=== PATIENT | female | born 1950 | race Caucasian/White ===

== ENCOUNTER → 2017-02-01 | Outpatient (CLI) | payer OTHER | LOC: FIMAGING 11:40 | PROVIDERS: ATTEND Orthopaedic Surgery | DX: S42.411 Displaced simple supracondylar fracture without intercondylar fracture of right humerus (principal) ==

== ENCOUNTER → 2017-07-06 | Outpatient (CLI) | payer OTHER ==
[~2017-07-06] MED LIST: LIDOCAINE 1% 300 MG/30 ML SDV ONE
== END ==
LOC: FIMAGING 09:53
PROVIDERS: ATTEND Orthopaedic Surgery Hand Surgery
PROC: 0R9L3ZX Drainage of Right Elbow Joint, Percutaneous Approach, Diagnostic (ICD-10-PCS; principal; 2017-07-06)
DX: L08.9 Local infection of the skin and subcutaneous tissue, unspecified (principal); S42.494 Other nondisplaced fracture of lower end of right humerus

== ENCOUNTER 2017-09-18 18:11 | Emergency (ER) | payer OTHER ==
[2017-09-18 18:35] VITALS: TEMP 98.2
--- NOTE | 2017-09-18 20:00 | EDPHY ---
H & P Stated Complaint: R ELBOW INFECTION/DRNG Time Seen by Provider: 09/18/17 19:23 HPI/ROS: Chief complaint: Right elbow infection History of present illness: This is a 66-year-old female who presents to the emergency department concerned she has a right elbow infection. Patient has a long history of problems with this elbow. Last year she injured it resulting in severe fracture. It did not properly heal and she has a nonunion. Over this time she has been treated by orthopedic doctors. This last June there was concern that she was getting a joint infection and an ultrasound guided arthrocentesis was performed. She states she has had a chronic wound at the site of the needle insertion since then. Over the last day she has started nto notice a small amount of pus coming from the wound site as well as a small amount of redness and swelling around it. She denies other associated signs or symptoms including no fevers, no red streaking from the wound site, no actual pain in the joint, she is able to move the joint at her baseline without difficulty, no abnormal coolness or paresthesias in the arm, no new trauma. - Personal History Current Tetanus/Diphtheria Vaccine: Yes Tetanus Vaccine Date: 02/02/2014 - Medical/Surgical History Hx Asthma: Yes Hx Chronic Respiratory Disease: No Hx Diabetes: No Hx Cardiac Disease: No Hx Renal Disease: No Hx Cirrhosis: No Hx Alcoholism: No Hx HIV/AIDS: No Hx Splenectomy or Spleen Trauma: No Other PMH: HYPOTHYROID, LUPUS,DEPRESSION - Social History Smoking Status: Never smoked - Physical Exam Exam: General: Alert, nontoxic Skin: There is a small wound to the lateral aspect of the elbow with some pustular discharge coming from it. There is a trace amount of surrounding erythema and edema. No significant warmth to palpation. No tenderness to palpation. No induration or fluctuance to suggest abscess. No red streaking. Musculoskeletal: Obvious deformity to the right elbow which she states is normal for her. She does have limited range of motion, most pronounced with extension. She states this is her normal range of motion since the injury. There is no pain with active or passive range of motion. Vascular: Radial pulses 2+. Neurologic: Sensation intact in the right hand. Constitutional: Initial Vital Signs Temperature (C) 36.8 C 09/18/17 18:33 Heart Rate 92 09/18/17 18:33 Respiratory Rate 17 09/18/17 18:33 Blood Pressure 175/107 H 09/18/17 18:33 O2 Sat (%) 97 09/18/17 18:33 O2 Delivery Mode Room Air Allergies/Adverse Reactions: acetaminophen [From Percocet] Allergy (Mild, Verified 02/02/14 03:57) Anxiety oxycodone HCl [From Percocet] Allergy (Mild, Verified 02/02/14 19:05) Anxiety Home Medications: Medication Instructions Recorded Fluticasone/Salmeter 100/50Mcg 1 puffs IH DAILY 02/02/14 [Advair 100/50 (*)] Levothyroxine [Synthroid 88 mcg 88 mcg PO DAILY06 02/02/14 (*)] Liothyronine Sodium [Cytomel 5 mcg 10 mcg PO DAILY@15 02/02/14 (*)] Liothyronine Sodium [Cytomel 5 mcg 15 mcg PO DAILY@06 02/02/14 (*)] Progesterone, Micronized 100 mg PO BID 02/02/14 [Progesterone] buPROPion SR [Wellbutrin 150mg SR 300 mg PO DAILY 02/02/14 (*)] Sulfamethox/Tmp 800/160 mg 1 tab PO BID 7 Days tab 09/18/17 [Bactrim Ds] Medical Decision Making - Diagnostics Imaging Results: Imaging Impressions Elbow X-Ray 09/18/17 19:31 Impression: Extensive postoperative change with incomplete osseous fusion involving prior supracondylar and proximal ulnar fracture sites, with associated soft tissue swelling. Underlying infection is not excluded. Imaging: I viewed and interpreted images myself ED Course/Re-evaluation: Patient is discussed with my secondary supervising physician Dr. Jason Chung. Patient presents to the emergency department for evaluation of a wound infection. She does appear to have an infection at the site of the needle insertion from a remote ultrasound guided arthrocentesis. A trace amount of pus is noted, wound culture is obtained. There is minimal surrounding erythema and edema. I do not appreciate evidence of abscess formation. Further my suspicion for joint involvement is low given lack of pain in the joint, lack of erythema or edema to the joint and the fact that she has range of motion at her baseline with both active and passive range of motion without discomfort. X- rays obtained and unremarkable. She is started on Bactrim. She is asked to follow up with her orthopedic doctor for recheck. Return precautions are given. Patient voiced understanding and agreement with plan. Differential Diagnosis: Included but not limited to cellulitis, abscess, lymphangitis, unlikely osteomyelitis or septic joint - Data Points Microbiology Results: MICROBIOLOGY 09/18/17 19:30 Elbow - Swab Gram Stain - Final Medications Given: Discontinued Medications Trimethoprim/Sulfamethoxazole (Bactrim Ds Prepack#2) 1 btl TAKEHOME EDNOW ONE Stop: 09/18/17 20:18 Last Admin: 09/18/17 20:37 Dose: 1 btl Trimethoprim/Sulfamethoxazole (Bactrim Ds) 1 ea PO EDNOW ONE PRN Reason: Protocol Stop: 09/18/17 20:31 Last Admin: 09/18/17 20:36 Dose: 1 ea Departure - Departure Disposition: Home, Routine, Self-Care Clinical Impression: Cellulitis Qualifiers: Site of cellulitis: extremity Site of cellulitis of extremity: upper extremity Laterality: right Qualified Code(s): L03.113 - Cellulitis of right upper limb Condition: Good Instructions: Sulfamethoxazole/Trimethoprim (By mouth), Cellulitis (ED) Additional Instructions: Follow-up with your orthopedic doctor for continued evaluation and care Please let your doctor know that a wound culture is pending If symptoms worsen or new symptoms develop return to the emergency room for recheck Referrals: Jayashree Lira MD [Primary Care Provider] - As per Instructions Santi Fountain MD [Medical Doctor] - As per Instructions Prescriptions: Sulfamethox/Tmp 800/160 mg [Bactrim Ds] 1 tab PO BID 7 Days tab
[2017-09-18] MEDS ORDERED: SULFAMET/TMP DS PREPACK#2 BTL TAKEHOME ONE (20:17)
[2017-09-18] MEDS ORDERED: SULFAMETHOX/TMP 800/160 MG 1 TAB PO ONE (20:30)
[2017-09-18 20:36] VITALS: BP 153/81; PULSE 81; RESP 18; O2SAT 94
== END 2017-09-18 20:45 | disposition home or self-care (01) ==
DX: L03.113 Cellulitis of right upper limb (principal); J45.909 Unspecified asthma, uncomplicated

== ENCOUNTER 2017-10-05 13:36 | Inpatient (IN) | payer OTHER ==
--- NOTE | 2017-10-05 14:33 | EDPHY ---
H & P Stated Complaint: cyst on right elbow for 2 weeks sent by oncall PCP. 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 Location: Right elbow Quality: Cyst Duration: 2 weeks Signs and Symptoms: No bleeding, no radiation, no numbness, no weakness, no tingling, no incontinence, no decreased range of motion, + swelling, + pain Timing: Acute on chronic Severity: Moderate to severe Context: Patient has a longstanding right elbow problems presents today with right red redness, purulent drainage starting today. May 2016 she had a fracture of her distal humerus. 03/14/2016 hardware loosening status post right elbow ORIF. She was seen in June with aspiration of the right elbow by Dr. Shukla office. Approximately 1 week later it turned bright red and was swollen. On 09/18/2017, patient went to this emergency room and had radiograph that showed incomplete prior supracondylar and proximal ulnar fracture sites. She had an I and D performed with a culture final no growth. She was placed on Bactrim for 10 days with improvement until yesterday when the redness and swelling reoccurred. Patient is able to flex and extend her elbow with only mild pain. She reports that she has also had and I and D performed under ultrasound guidance within the last year. Modifying Factors: Bactrim Comment: ROS: see HPI Constitutional: No fever, no chills, no weight loss Eyes: No blurred vision Respiratory: No shortness of breath, no cough Cardiovascular: No chest pain Gastrointestinal: No nausea, no vomiting no diarrhea Genitourinary: No dysuria Extremities: No myalgias Neurologic: No weakness, no numbness Skin: No rashes Hematologic: No bruising, no bleeding MEDICAL/SURGICAL/SOCIAL HISTORY: Medical history: HYPOTHYROID, LUPUS,DEPRESSION. Asthma Surgical history: Right elbow ORIF Social history: Retired. CONSTITUTIONAL: Petite elderly white female, awake and alert, no obvious distress HEENT: Atraumatic and normocephalic. NECK: supple, no midline tenderness, flexion 45 degrees, extension 45 degrees, right and left lateral flexion 45 degrees. No meningismus. Cardiovascular: Normal S1/S2, regular rate, regular rhythm, without murmur rub or gallop. PULMONARY/CHEST: Symmetrical and nontender. no crepitus. Clear to auscultation bilaterally. Good air movement. No accessory muscle usage. ABDOMEN: Soft, nondistended, nontender, no ecchymosis. PELVIC: no pain with rocking; bilateral hips flexion 125 degrees, extension 30 degrees, with no pain internal rotation and no pain external rotation. BACK: No midline tenderness, no paraspinous spasm, deep tendon reflexes 2/2, no pain with straight leg raise EXTREMITIES: 2/2 radial pulses, RIGHT ELBOW: Extension to 120, flexion to 100 , tenderness over medial epicondyle, tenderness over lateral epicondyle, no effusion, moderate erythema and swelling, mild effusion over olecranon. Remote incision noted. Small site with clear fluid leakage with palpation. no clubbing , no cyanosis or edema. NEUROLOGICAL: no focal neuro deficits. GCS 15. Light touch sensation intact. SKIN: Warm and dry, no erythema. no rash. Good capillary refill. Source: Patient Exam Limitations: No limitations - Personal History Current Tetanus Diphtheria and Acellular Pertussis (TDAP): Yes Tetanus Vaccine Date: 02/02/2014 - Medical/Surgical History Hx Asthma: Yes Hx Chronic Respiratory Disease: No Hx Diabetes: No Hx Cardiac Disease: No Hx Renal Disease: No Hx Cirrhosis: No Hx Alcoholism: No Hx HIV/AIDS: No Hx Splenectomy or Spleen Trauma: No Other PMH: HYPOTHYROID, LUPUS,DEPRESSION. Asthma - Social History Smoking Status: Never smoked Constitutional: Initial Vital Signs Temperature (C) 36.4 C 10/05/17 13:41 Heart Rate 90 10/05/17 13:41 Respiratory Rate 16 10/05/17 13:41 Blood Pressure 151/100 H 10/05/17 13:41 O2 Sat (%) 98 10/05/17 13:41 O2 Delivery Mode Room Air Allergies/Adverse Reactions: acetaminophen [From Percocet] Allergy (Mild, Verified 02/02/14 03:57) Anxiety oxycodone HCl [From Percocet] Allergy (Mild, Verified 02/02/14 19:05) Anxiety Home Medications: Medication Instructions Recorded Fluticasone/Salmeter 100/50Mcg 1 puffs IH DAILY 02/02/14 [Advair 100/50 (*)] Levothyroxine [Synthroid 88 mcg 88 mcg PO DAILY06 02/02/14 (*)] Liothyronine Sodium [Cytomel 5 mcg 10 mcg PO DAILY@15 02/02/14 (*)] Liothyronine Sodium [Cytomel 5 mcg 15 mcg PO DAILY@06 02/02/14 (*)] Progesterone, Micronized 100 mg PO BID 02/02/14 [Progesterone] buPROPion SR [Wellbutrin 150mg SR 300 mg PO DAILY 02/02/14 (*)] Sulfamethox/Tmp 800/160 mg 1 tab PO BID 7 Days tab 09/18/17 [Bactrim Ds] Medical Decision Making ED Course/Re-evaluation: Labs, blood culture, IV antibiotics ordered Concern for deep tissue infection, hardware infection, abscess. Spoke with Dr. Clark, Orthopedics,who advised he agrees with IV vancomycin and requests an MRI of the elbow as well as hospitalist to admit patient and he would be happy to consult. 1455: ED decision to consult for admission as hardware with recurrent infection ; concern for deep space and joint involvement; spoke with hospitalist Dr. Lima who kindly accepts patient to provide further care Called by radiologist to request changing MRI to CT scan due to hardware obstructing the view. Spoke with Dr. Clark about change of imaging and he is agreeable. called by Dr. Fang regarding CT elbow shows: 3 pockets of fluid, the largest medial aspect distal humerus, 3.5 cm x 4 cm, anterior aspect 3 cm x 2 cm x 2 cm , distal humerus laterally 2.5 cm x 2 cm. resorbed distal humerus and subluxed. 2 loose screws; one completely loose. Differential Diagnosis: Differential diagnosis includes but is not limited to septic arthritis, cellulitis, abscess, hardware infection. - Data Points Laboratory Results: Laboratory Results 10/05/17 15:00 10/05/17 15:00 10/05/17 10/05/17 15:00 15:00 WBC 5.74 10^3/uL 10^3/uL (3.80-9.50) RBC 3.94 10^6/uL L 10^6/uL (4.18-5.33) Hgb 13.3 g/dL g/dL (12.6-16.3) Hct 36.5 % L % (38.0-47.0) MCV 92.6 fL fL (81.5-99.8) MCH 33.8 pg pg (27.9-34.1) MCHC 36.4 g/dL g/dL (32.4-36.7) RDW 12.1 % % (11.5-15.2) Plt Count 256 10^3/uL 10^3/uL (150-400) MPV 8.5 fL L fL (8.7-11.7) Neut % (Auto) 63.8 % % (39.3-74.2) Lymph % (Auto) 22.0 % % (15.0-45.0) Dupage % (Auto) 10.3 % % (4.5-13.0) Eos % (Auto) 2.8 % % (0.6-7.6) Baso % (Auto) 0.9 % % (0.3-1.7) Nucleat RBC Rel Count 0.0 % % (0.0-0.2) Absolute Neuts (auto) 3.67 10^3/uL 10^3/uL (1.70-6.50) Absolute Lymphs (auto) 1.26 10^3/uL 10^3/uL (1.00-3.00) Absolute Monos (auto) 0.59 10^3/uL 10^3/uL (0.30-0.80) Absolute Eos (auto) 0.16 10^3/uL 10^3/uL (0.03-0.40) Absolute Basos (auto) 0.05 10^3/uL 10^3/uL (0.02-0.10) Absolute Nucleated RBC 0.00 10^3/uL 10^3/uL (0-0.01) Immature Gran % 0.2 % % (0.0-1.1) Immature Gran # 0.01 10^3/uL 10^3/uL (0.00-0.10) Sodium 140 mEq/L mEq/L (134-144) Potassium 4.2 mEq/L mEq/L (3.5-5.2) Chloride 103 mEq/L mEq/L (97-110) Carbon Dioxide 26 mEq/l mEq/l (22-31) Anion Gap 11 mEq/L mEq/L (8-16) BUN 17 mg/dL mg/dL (7-23) Creatinine 0.7 mg/dL mg/dL (0.6-1.0) Estimated GFR > 60 Glucose 100 mg/dL mg/dL (70-100) Calcium 9.5 mg/dL mg/dL (8.5-10.4) Medications Given: Discontinued Medications Vancomycin/Sodium Chloride (Vancomycin 1 Gm (Premix)) 250 mls @ 250 mls/hr IV EDNOW ONE PRN Reason: Protocol Stop: 10/05/17 15:49 Last Admin: 10/05/17 16:00 Dose: 250 mls Departure - Departure Disposition: [facility] Inpatient Acute Clinical Impression: Cellulitis of right elbow, Abscess of elbow Hardware complicating wound infection Qualifiers: Encounter type: subsequent encounter Qualified Code(s): T84.7XXD - Infection and inflammatory reaction due to other internal orthopedic prosthetic devices, implants and grafts, subsequent encounter
[2017-10-05] MEDS ORDERED: VANCOMYCIN HCL/NORMAL SALINE 250 ML IV ONE (14:50)
[2017-10-05 15:12] LABS: % IMMATURE GRANULYOCYTES 0.2 % (0.0-1.1); ABSOLUTE IMMATURE GRANULOCYTES 0.01 10^3/uL (0.00-0.10); ADD DIFF? NO; ADD MORPH? NO; ADD SCAN? NO; ATYPICAL LYMPHOCYTE FLAG 10 (0-99); FRAGMENT RBC FLAG 0 (0-99); HEMATOCRIT 36.5 % (38.0-47.0); HEMOGLOBIN 13.3 g/dL (12.6-16.3); LEFT SHIFT FLG 0 (0-99); LIPEMIA HEMOLYSIS FLAG 90 (0-99); MEAN CELL HEMOGLOBIN 33.8 pg (27.9-34.1); MEAN CELL HEMOGLOBIN CONCENTR. 36.4 g/dL (32.4-36.7); MEAN CELL VOLUME 92.6 fL (81.5-99.8); MEAN PLATELET VOLUME 8.5 fL (8.7-11.7); PLATELET CLUMPS FLAG 0 (0-99); PLATELET COUNT 256 10^3/uL (150-400); RED BLOOD CELL COUNT 3.94 10^6/uL (4.18-5.33); RED CELL DISTRIBUTION WIDTH 12.1 % (11.5-15.2)
[2017-10-05 15:34] LABS: ANION GAP 11 mEq/L (8-16); CALCIUM 9.5 mg/dL (8.5-10.4); CARBON DIOXIDE 26 mEq/l (22-31); CHLORIDE 103 mEq/L (97-110); CREATININE 0.7 mg/dL (0.6-1.0); GLOMERULAR FILTRATION RATE > 60; GLUCOSE 100 mg/dL (70-100); POTASSIUM 4.2 mEq/L (3.5-5.2); SODIUM 140 mEq/L (134-144)
--- NOTE | 2017-10-05 17:27 | PDGENHP ---
History and Physical History and Physical: chart reviewed imaging reviewed [facility] Orthopedic notes reviewed patient has been recently by Wade Brown and There is considerations for further surgery. Her presumptive diagnosis is a nonunion. Query infection I will discuss interventions with her upon examination An Infectious disease consult is recommended
[2017-10-05] MEDS ORDERED: ONDANSETRON 4 MG/2 ML VIAL IVP PRN (19:18)
[2017-10-05] MEDS ORDERED: ONDANSETRON DISINTEGRATING 4 MG TAB PO PRN (19:18)
--- NOTE | 2017-10-05 19:29 | GCON ---
[[facility]] CONSULTATION ORTHOPEDIC ER CONSULT CHIEF COMPLAINT: Right elbow redness and drainage. 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 She does a lot of weightlifting and curls. She likes to stay physically fit. She sustained an intra -articular distal humerus fracture that was treated by Dr. Chew over a year ago. She did well up u ntdecember, where she started developing some pain and some redness. She is right-handed and had reasonable use of her right elbow. She was last seen in the emergency room early September for cellul itis and drainage. There was a joint tap at the time that was negative. She has had recent visits w ith Dr. Olvera and Dr. Fountain for elbow consultation. Please see details of Admitting History and Physical. PERTINENT ORTHOPEDIC EXAMINATION: GENERAL: A well-appearing female. She does not look toxic or ill -appearing. RIGHT UPPER EXTREMITY: There is a brawny edema over the lateral aspect of the elbow. T here is a pinpoint area of serous drainage off the anterolateral elbow. She has pain-free range of m otion of the elbow from 20-100 degrees of flexion. X-RAYS: From September reviewed, which shows distal humerus plates with olecranon plate. CT scan fro january reviewed. CT scan this admission reviewed, shows multiloculated fluid collections about the elbow. IMPRESSION AND RECOMMENDATION: Likely, presumptive infected nonunion. It is a chronic situation. S he does not look ill or toxic at this point. I would like Infectious Disease to weigh in on potentia l antibiotic suppression regimen until she can see her primary surgeon for removal of hardware. We h ad a long discussion at the bedside regarding hardware removal, bone biopsies, fluid and culture biop sies at the time of removal of hardware. She is going to see family in [place] in October, and she would like to make this. I would then recommend that Infectious Diseases see her tomorrow, hopef ully, can make some suppressive antibiotic regimen coverage. It sounds like Bactrim did work, at [facility] for 2 weeks from her emergency department visit in September. She would like to hold off on her re moval of hardware until November, although we did not make any promises. If her wound starts to look worse, drainage starts to get worse, and the condition of her right elbow gets worse, plan for remova l of hardware as soon as possible. /[id number]/MODL
[2017-10-05] MEDS ORDERED: NS 1,000 ML IV SCH (19:30)
--- NOTE | 2017-10-05 20:15 | GHP ---
[f rep st] HISTORY AND PHYSICAL DATE OF ADMISSION: 10/05/2017 HISTORY OF PRESENT ILLNESS: The patient is pleasant 66-year-old female with history of lupus, on no immunosuppressives, as well as hypothyroidism, who presents with a drainage over her right elbow. Salima loyola fractured it about a year ago. She had some hardware placed. In December she developed some drain age, and she received a course of Keflex and Bactrim and improvement. She does have significant swel ling. Then recently she had been seen and placed back on Bactrim. She has not had fever, chills, nausea, vomiting. There was some drainage of some clear thick liquid. There was no purulence that she describes. There was no odor. She has not had axillary pain. REVIEW OF SYSTEMS: Complete 10-point review of systems conducted, negative except as noted in the HP I. PAST MEDICAL HISTORY: Hypothyroidism, mild lupus without kidney involvement, hypothyroidism. ALLERGIES: Tylenol and oxycodone. HOME MEDICATIONS: Advair, bupropion, calcium carbonate, vitamin D3, levothyroxine, liothyronine, pro gesterone. SOCIAL HISTORY: She has lived in [place] a long time. No tobacco. Remotely she smoked a little bit . Rare alcohol. FAMILY HISTORY: Parents . PHYSICAL EXAM: VITAL SIGNS: Temp 36.8, blood pressure, 104/82, pulse 86, breathing 16 times a minut e, 97% on room air. GENERAL: No acute distress. HEENT: Sclerae anicteric. Oropharynx clear. Muc ous membranes moist. NECK. No lymphadenopathy. No JVD. LUNGS: Clear to auscultation bilaterally. HEART: S1, S2. ABDOMEN: Soft, nontender, nondistended. LOWER EXTREMITIES: Without edema. Calv es nontender. SKIN: Without rash. Her right elbow is enlarged. It is pigmented and slightly eryth ematous, but does not appear acute acutely so. There is a single small Band-Aid over what appeared t o be the area of drainage. There is no fluctuance, but it is warm. There is no lymphangitic streaki ng. She is able to flex and extend it without significant pain. LABORATORY DATA: White count 5.7, hematocrit 36, platelets are 256,000, sodium 140, potassium 4.2, c hloride 103, bicarb 26, BUN 17, creatinine 0.7, glucose is 100. CT images reviewed, interpreted by me, shows on multiloculated fluid collection, as well as loosening of a cortical screw along the medial plate. Extensive bony resorption of distal humeral fragments, and mid volar subluxation of the radial head. I have discussed the case Dr. Juan M Clark, as well agustina Tinajero of the Emergency Department. ASSESSMENT/PLAN: A 66-year-old female with likely subacute hardware infection, as well as nonunion. 1. Infection. The patient has received a couple courses of oral antibiotics. She was started on va ncomycin, which I will continue. ID is being consulted. We will draw blood cultures. Check ESR and CRP in the morning. I believe the patient probably needs her hardware out. 2. 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 This will need some defini tive orthopedic management in the future. 3. Lupus. She is not on any immunosuppressive. We will follow. Does not appear to be active. 4. Hypothyroidism. Continue her medications. 5. Pain. She does not complain of pain. 6. Prophylaxis. Pharmacologic prophylaxis indicated if in the hospital longer than 24 hours. I hav e started her on SCDs alone. It does not sound like there is plans for surgery during this admission , but we will follow. 7. Disposition: Inpatient status. /[id number]/MODL
--- NOTE | 2017-10-05 20:47 | PDMN ---
Medical Necessity Medical necessity: C/M review: Patient meets Inpatient criteria under [facility] Musculoskeletal disease GRG; Acute worsening right elbow hardware infection with nonunion - treated with course of oral Bactrim just prior to this admission - failed outpt. therapy , CT shows multiloculated fluid collection as well as loosening of a cortical screw along the medial plate right elbow requiring planned Infectious Disease consult, IV fluids x 1 bag, ongoing IV Vancomycin Q 24 hrs., acute inpt PT, comorbid lupus, hypothyroidism, hx right elbow fracture approximately 1 yr. ago with hardware placement, 12/2016 right elbow drainage developed treated with course of oral Keflex and Bactrim and improvement occurred, then recent worsening of right elbow drainage with significant swelling just prior to this admission. MD anticipates > 2 MN LOS for ongoing med nec for eval and TX of above.
[2017-10-05] MEDS: buPROPion SR 150 MG TAB PO SCH (20:49)
[2017-10-06 05:06] LABS: HEMATOCRIT 35.4 % (38.0-47.0)
[2017-10-06 05:15] LABS: INR 1.07 (0.83-1.16); PROTIME(PATIENT) 13.8 SEC (12.0-15.0)
[2017-10-06 05:21] LABS: ANION GAP 9 mEq/L (8-16); C-REACTIVE PROTEIN 17.9 mg/L (<10.0); CALCIUM 8.8 mg/dL (8.5-10.4); CARBON DIOXIDE 23 mEq/l (22-31); CHLORIDE 110 mEq/L (97-110); CREATININE 0.5 mg/dL (0.6-1.0); GLOMERULAR FILTRATION RATE > 60; GLUCOSE 77 mg/dL (70-100); POTASSIUM 3.8 mEq/L (3.5-5.2); SODIUM 142 mEq/L (134-144)
[2017-10-06] MEDS: LEVOTHYROXINE 88 MCG TAB PO SCH (05:51)
[2017-10-06] MEDS ORDERED: VANCOMYCIN HCL/NORMAL SALINE 250 ML IV SCH (07:30)
[2017-10-06] MEDS: CHOLECALCIFEROL VIT D3 1,000 UNITS TAB PO SCH (07:46)
[2017-10-06] MEDS: PROGESTERONE,MICR 100 MG CAP PO SCH (07:46)
[2017-10-06] MEDS: CALCIUM CARBONATE 500 MG TAB PO SCH (07:46)
[2017-10-06] MEDS: buPROPion SR 150 MG TAB PO SCH ×2 (07:46→23:54)
[2017-10-06] MEDS: FLUTICASONE/SALMETER 100/50MCG DISKUS IH SCH (10:28)
--- NOTE | 2017-10-06 14:05 | HOSPPROG ---
Hospitalist Progress Note Assessment/Plan: 66y female with elbow pain. First encounter, chart reviewed. D/W Dr Andrade. #Right elbow wound appreciate ID and ortho plan for OR on sunday #Hx lupus stable #Hypothyroid cont meds #Dispo unclear, needs surgical intervention Subjective: Up ambulating in room. Wants to go home. Denies pain. Objective: Vital Signs Temp Pulse Resp BP Pulse Ox 36.6 C 87 17 145/92 H 96 10/06/17 11:51 10/06/17 11:51 10/06/17 11:51 10/06/17 11:51 10/06/17 11:51 Laboratory Results 10/06/17 04:28 10/06/17 04:28 10/05/17 10/06/17 10/07/17 05:59 05:59 05:59 Intake Total 1129 Balance 1129 PT 13.8 SEC (12.0-15.0) 10/06/17 04:28 INR 1.07 (0.83-1.16) 10/06/17 04:28 - Physical Exam Constitutional: no apparent distress, not in pain, cachectic Eyes: PERRL, anicteric sclera, EOMI Ears, Nose, Mouth, Throat: moist mucous membranes, hearing normal, ears appear normal Cardiovascular: No JVD, No tachycardia, No edema Respiratory: no respiratory distress, no rales or rhonchi, reduced air movement Gastrointestinal: No tenderness, No ascites, No guarding Skin: warm, normal color, induration Musculoskeletal: full muscle strength, joint tenderness, No normal joint ROM Neurologic: AAOx3 Psychiatric: not anxious, not encephalopathic, thought process linear, poor insight, poor judgement ICD10 Worksheet Patient Problems: Problems Problem Status Onset Lupus Acute Fracture of iliac crest Acute Cellulitis Acute Cellulitis of right elbow Acute Abscess of elbow Acute Hardware complicating wound infection Acute
--- NOTE | 2017-10-06 14:36 | ASMTCMCOM ---
CM Note CM Note Notes: Pt admitted with infected elbow. ID consult pending. Pt's DC needs TBD. Date Signed: 10/06/2017 02:36 PM Electronically Signed By:Lakesha Laird LCSW
[2017-10-06] MEDS ORDERED: LIOTHYRONINE SODIUM 5 MCG TAB PO SCH (15:00)
--- NOTE | 2017-10-06 15:33 | SOAPPROG ---
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 Andrade Will plan Sunday for HWR and deep cultures including bone 10/06/17 15:30 Subjective: slight drainage at elbow on right, similar pain to last 6 months Objective: Vital Signs Temp Pulse Resp BP Pulse Ox 36.6 C 87 17 145/92 H 96 10/06/17 11:51 10/06/17 11:51 10/06/17 11:51 10/06/17 11:51 10/06/17 11:51 Laboratory Results 10/06/17 04:28 10/06/17 04:28 10/05/17 10/06/17 10/07/17 05:59 05:59 05:59 Intake Total 1129 Balance 1129 PT 13.8 SEC (12.0-15.0) 10/06/17 04:28 INR 1.07 (0.83-1.16) 10/06/17 04:28 Elbow less erythematous than 3 weeks ago no drainage at this point ICD10 Worksheet Patient Problems: Problems Problem Status Onset Abscess of elbow Acute Cellulitis of right elbow Acute Hardware complicating wound infection Acute Cellulitis Acute Fracture of iliac crest Acute Lupus Acute
--- NOTE | 2017-10-07 00:59 | GCON ---
[f rep st] CONSULTATION INPATIENT INFECTIOUS DISEASE CONSULTATION REFERRING PHYSICIAN: Dee Mason NP REASON FOR REFERRAL: Right elbow infection and drainage. HISTORY OF PRESENT ILLNESS: Patient is a 66-year-old female, who was referred to the emergency room due to continued drainage of her right elbow. She was sent there by her on-call primary care [facility]. Patient's story begins in May of last year when she had a fracture of her right distal humerus. She had this surgically repaired with hardware. Patient relates starting in December of this year, she began to notice that the right elbow became swollen, red, and warm. She has had that aspirated at least twice beginning in December, and no growth was seen from the sample. She has been given a v ariety of antibiotics to treat the swelling, including Keflex and Bactrim. She relates that Keflex d id not have any effect, but Bactrim helped reduce the swelling and warmth. Starting a couple of weeks ago, the patient noticed a small pustule form at the site of the most rece nt aspiration. It ruptured and began draining a thicker purulent fluid. Patient was placed again on Bactrim for 10 days, and she improved as well, but she began the day prior to admission having redne ss and swelling return. Patient underwent a CT scan of her extremity upon admission. This CT scan s howed a multiloculated fluid collection surrounding the elbow and extensive bony resorption of the di stal humeral fracture fragments. It also showed loosening hardware. Of note, the patient had been advised over the past 9 months to have surgery removing the hardware an d washing out the area. She has declined to pursue this suggestion to this point. Currently, she complains of continued drainage and swelling in the area. Minor pain, especially when trying to use the elbow against significant counter force. She denies any fevers or chills. Of not e, she does have underlying lupus, which is not being treated with significant immunosuppressants. PAST MEDICAL HISTORY: 1. Hypothyroidism. 2. Lupus with no kidney involvement. 3. Hypothyroidism. ANTIBIOTICS: Vancomycin. ALLERGIES: Patient is allergic to acetaminophen and oxycodone. SOCIAL HISTORY: Patient denies any tobacco use. Only occasional alcohol. FAMILY HISTORY: Reviewed, but noncontributory. REVIEW OF SYSTEMS: Other than that detailed above in the history of present illness, comprehensive 1 0-system review is negative. PHYSICAL EXAMINATION: VITAL SIGNS: Temperature maximum is 36.6, temperature current is 36.6, heart rate is 87, respiratory rate is 17, blood pressure is 145/92. GENERAL: Patient is a well-formed, we ll-nourished, older female, in no acute distress. She is not toxic in appearance. She is alert orie nted x3. She has a pleasant demeanor. HEENT: Normocephalic for age. Atraumatic. No scleral icter us. No oral lesions. No drainage from the nares. Eyes: Lids and conjunctivae are within normal li mits. Pupils are equal and round bilaterally. NECK: Supple. No meningismus. LUNGS: Clear to aus cultation bilaterally with good effort. HEART: Regular rate and rhythm. No significant peripheral edema. SKIN: Warm and dry to the touch. No rash noted. Patient does have some mild coarsening of the skin around the right elbow region and scar at the site of the right distal humerus. MUSCULOSKEL ETAL: No muscle belly tenderness is noted. Patient has obvious right elbow joint enlargement with e mari and potential fluctuance on soft tissues. No other arthritis or enlargement of joint noted. NE URO: Cranial nerves 2-12 seem to be intact. Peripheral sensation seems intact in extremities. LABORATORY DATA: Patient has a CBC dated 10/05/2017, shows a white blood cell count of 5.7, hemoglob in of 13.3, hematocrit of 36.5, and a platelet count of 256. Differential is within normal limits. Erythrocyte sedimentation rate is 35. Serum chemistries on 10/06/2017 are all within normal limits. Creatinine is 0.5. C-reactive protein is 17.9. Microbiologic data: Patient has blood cultures dated 10/05/2017, which are pending. Patient has an elbow aspirate dated 09/18/2017; Gram stain and wound culture are negative. 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 It is odd that off antibiotics, she had 2 separate aspirations and nothing has grown. At this point, I think with the damage evident in the CT scan, the patient needs operative management . I think further delay with only potentially cause more bone reabsorption and problems down the summer d. Patient voiced her understanding of these instructions and advice. At this point, we will remove the vancomycin. We will discuss the case with Dr. Chew, her orthopedist, and Dr. Ramirez the orthop edic surgeon who is position clerk. We will try to arrange for the patient to have debridement and drainage of the right elbow early this week. PLAN: 1. Discontinue all antibiotics in anticipation of debridement of the right elbow and deep sampling. 2. Follow operative plan and clinical course. /[id number]/MODL
[2017-10-07] MEDS: LEVOTHYROXINE 88 MCG TAB PO SCH (06:08)
[2017-10-07 07:20] VITALS: BP 139/85; PULSE 86; RESP 16; TEMP 97.9; O2SAT 97
[2017-10-07] MEDS: CALCIUM CARBONATE 500 MG TAB PO SCH (09:00)
[2017-10-07] MEDS: buPROPion SR 150 MG TAB PO SCH (09:00)
[2017-10-07] MEDS: PROGESTERONE,MICR 100 MG CAP PO SCH (09:00)
[2017-10-07] MEDS: CHOLECALCIFEROL VIT D3 1,000 UNITS TAB PO SCH (09:00)
--- NOTE | 2017-10-07 09:52 | ASDISCHSUM ---
Discharge Information Plan Status:Home with No Needs Medically Cleared to Leave:10/06/2017 Discharge Date:10/06/2017 CM D/C Disposition:Home, Routine, Self-Care ADT D/C Disposition:Home, Routine, Self-Care Projected Discharge Date:10/06/2017 Transportation at D/C:Family Discharge Delay Reason: Follow-Up Date:10/06/2017 Discharge Slot: Final Diagnosis: Placement Information Patient Contact Information Contact Name:OLIVIA Relationship: Address: Work Phone: City:[place] Alternate Phone: [facility]/Zip Code:[place] Email: Financial Information Financial Class:HMO and PPO Plans Primary Plan Desc:[facility] Primary Plan Number:[id number] Secondary Plan Desc: Secondary Plan Number: Assessment Information [facility] CM Progress Note CM Note CM Note Notes: Pt admitted with infected elbow. ID consult pending. Pt's DC needs TBD. Date Signed: 10/06/2017 02:36 PM Electronically Signed By:Lakesha Laird LCSW Intervention Information Intervention Type:*Incorrect Registration Date of Service:10/05/2017 03:11 PM Patient Type:Inpatient Staff Member:OCHOA Degroot Shelly Hours:0.25 Discipline: Severity:1 (0-1 Hours) Comment:Registered observation, admit order wr itten inpatient status.
[2017-10-07] MEDS: FLUTICASONE/SALMETER 100/50MCG DISKUS IH SCH (10:07)
--- NOTE | 2017-10-07 13:31 | GDS ---
[f rep st] DISCHARGE SUMMARY DISCHARGE DIAGNOSIS: Right elbow wound. CONSULTATIONS: 1. Infectious Disease. 2. Orthopedics. STUDIES AND PROCEDURES: CT of the right upper extremity. PHYSICAL EXAM: GENERAL: The patient is alert. VITAL SIGNS: Afebrile 36.6, pulse is 86, respirator y rate 16, blood pressure is 139/85. She is saturating 97% on room air. I have seen and evaluated t he patient on the day of discharge. HOSPITAL COURSE: The patient is a 66-year-old female, who has had a long-standing history of complic ations in the postoperative setting of a right elbow surgery. She presents to the emergency room wit h complaints of drainage and open wound. She was evaluated with a CT scan as well as Infectious Dise ase consultation and Orthopedic consultation. The patient will require surgical intervention that wi ll be performed by Dr. Chew on 10/09/2017. The patient will be discharged home until that time and return for her scheduled surgical intervention. She will require likely followup with Jacob Dang in the postoperative setting. There are no pending studies. DISCHARGE MEDICATIONS: Please refer to EMR form. I have not provided the patient any prescriptions at the time of disposition. She will continue in the outpatient setting off antibiotic therapy. I spent greater than 35 minutes in the care, coordination, and management of this patient's dispositi on. /[id number]/MODL
== END 2017-10-07 10:38 | disposition home or self-care (01) | DRG 863 ==
LOC: OBSVTOIN 15:11 → F3N 16:44
PROVIDERS: ADMIT Internal Medicine; ATTEND Hospitalist
DX: T81.4XXA Infection following a procedure, initial encounter (principal); T84.110A Breakdown (mechanical) of internal fixation device of right humerus, initial encounter; M32.9 Systemic lupus erythematosus, unspecified; E03.9 Hypothyroidism, unspecified
CPT/HCPCS: J3370

== ENCOUNTER 2017-10-10 10:08 | Inpatient (IN) | payer OTHER ==
--- NOTE | 2017-10-10 10:31 | PDHPUP ---
History & Physical Update H&P update statement: This history and physical update is based on an assessment of the patient which was completed after admission or registration (within 24 hours), but prior to the surgery/procedure. No changes from H and P and consult on 10/06
[2017-10-10] MEDS ORDERED: LIDOCAINE 1% 2 ML INJ ID PRN (10:35)
[2017-10-10] MEDS ORDERED: LR 1,000 ML IV ONE (10:35)
--- NOTE | 2017-10-10 10:49 | PDGENHP ---
History & Physical Chief Complaint: R elbow non union, presumed infection History of Present Illness: Ongoin R elbow pain and non/mal union. Recently admitted for cellulitis and drainage. No worsening since admission Pertinent Past, Social, Family History: Lupus. osteoporosis. see full chart Relevant Physical Exam: R elbow swelling. No drainage. Similar appearance to how its been for 6 months Cardiorespiratory Assessment: heart rrr. lungs clear. Plan to OR for I and D, cultures and HWR. no antibiotics preop
[2017-10-10] MEDS ORDERED: BUPIVACAINE 0.5% 30 ML SDV ONE (10:51)
[2017-10-10] MEDS ORDERED: MIDAZOLAM 2 MG/2 ML VIAL ONE (11:17)
[2017-10-10] MEDS ORDERED: fentaNYL 100 MCG/2 ML INJ ONE ×3 (11:18→13:33)
[2017-10-10] MEDS ORDERED: PROPOFOL 200 MG/20 ML VIAL ONE (11:18)
--- NOTE | 2017-10-10 11:55 | PDANEPAE ---
ANE Past Medical History - Cardiovascular History Hx Hypertension: No Hx Arrhythmias: No Hx Chest Pain: No Hx Coronary Artery / Peripheral Vascular Disease: No Hx CHF / Valvular Disease: No Hx Palpitations: No - Pulmonary History Hx COPD: No Hx Asthma/Reactive Airway Disease: Yes Hx Recent Upper Respiratory Infection: No Hx Oxygen in Use at Home: No Hx Sleep Apnea: No Sleep Apnea Screening Result - Last Documented: Negative Pulmonary History Comment: instructed pt to bring inhalers to hospital - Neurologic History Hx Cerebrovascular Accident: No Hx Seizures: No Hx Dementia: No - Endocrine History Hx Diabetes: No Endocrine History Comment: hypothyroidism - Renal History Hx Renal Disorders: Yes Renal History Comment: frequency - Liver History Hx Hepatic Disorders: No - Neurological & Psychiatric Hx Hx Neurological and Psychiatric Disorders: Yes Neurological / Psychiatric History Comment: depression - Cancer History Hx Cancer: No - Congenital Disorder History Hx Congenital Disorders: No - GI History Hx Gastrointestinal Disorders: No - Other Health History Other Health History: lupus. 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 03/14/16 Right distal humerus ORIF with Chew. right thumb arthroplasty ANE Review of Systems Review of Systems: - Exercise capacity METS (RN): 4 METS ANE Patient History - Allergies Allergies/Adverse Reactions: acetaminophen [From Percocet] Allergy (Mild, Verified 10/09/17 17:04) Anxiety oxycodone HCl [From Percocet] Allergy (Mild, Verified 10/09/17 17:04) Anxiety - Home Medications Home Medications: Fluticasone/Salmeter 100/50Mcg [Advair 100/50 (*)] 02/02/14 [Last Taken 06:00] Levothyroxine [Synthroid 88 mcg (*)] 02/02/14 [Last Taken 10/10/17 06:00] Liothyronine Sodium [Cytomel 5 mcg (*)] 02/02/14 [Last Taken 10/10/17 06:00] buPROPion SR [Wellbutrin 150mg SR (*)] 02/02/14 [Last Taken 10/10/17 06:00] Calcium Carbonate [Calcium] 10/05/17 [Last Taken 10/10/17 06:00] Cholecalciferol (Vitamin D3) [Vitamin D3] 10/05/17 [Last Taken 10/10/17 06:00] Progesterone, Micronized [Progesterone] 10/05/17 [Last Taken 10/10/17 06:00] Proair Hfa 10/09/17 [Last Taken Unknown] - NPO status NPO Since - Liquids (Date): 10/10/17 NPO Since - Liquids (Time): 09:00 NPO Since - Solids (Date): 10/09/17 NPO Since - Solids (Time): 19:30 - Smoking Hx Smoking Status: Never smoked - Family Anes Hx Family Hx Anesthesia Complications: mother- n/v ANE Labs/Vital Signs - Vital Signs Blood Pressure: 136/76 Heart Rate: 93 Respiratory Rate: 16 O2 Sat (%): 93 Height: 152.4 cm Weight: 42.638 kg ANE Physical Exam - Airway Mallampati Score: Class 1
[2017-10-10] MEDS ORDERED: PHENYLEPHRINE HCL 100 MCG/ML SYR ONE (12:16)
[2017-10-10] MEDS ORDERED: METOCLOPRAMIDE 10 MG/2 ML VIAL ONE (12:16)
[2017-10-10] MEDS ORDERED: ONDANSETRON 4 MG/2 ML VIAL ONE (12:16)
[2017-10-10] MEDS ORDERED: ceFAZolin 1 GM VIAL ONE (13:00)
[2017-10-10] MEDS ORDERED: NALOXONE HCL 0.4 MG/ML INJ IVP PRN (13:24)
[2017-10-10] MEDS ORDERED: LR 500 ML IV PRN (13:24)
[2017-10-10] MEDS ORDERED: PROMETHAZINE HCL 25 MG/ML INJ IVP PRN (13:24)
[2017-10-10] MEDS ORDERED: ALBUTEROL 3 ML DEYVIAL IH PRN (13:24)
--- NOTE | 2017-10-10 13:24 | POSTANESTH ---
Post Anesthetic Evaluation Cardiovascular Status: Normal, Stable Respiratory Status: Normal, Stable Level of Consciousness/Mental Status: Can Participate in Eval Pain Control: Adequate, Prn Tx Ordered Nausea/Vomiting Control: Adequate, Prn Tx Ordered Complications Possibly Related to Anesthesia: None Noted
--- NOTE | 2017-10-10 13:27 | POSTOPPROG ---
Post Op Note Date of Operation: 10/10/17 Surgeon: Christiano Chew Heel Cementer: Desiree Anesthesiologist: Leah Anesthesia: GET(General Endotracheal) Pre-op Diagnosis: R elbow non union Post-op Diagnosis: same Indication: possible infection Procedure: R elbow HWR, I and D and culture Findings: chronic inflamatory tissue and metallosis Inf/Abcess present in the surg proc area at time of surgery?: Yes Depth: Deep Incisional (Fascial) EBL: 50-100 Drains: Gabriel Viveros
[2017-10-10] MEDS: fentaNYL 100 MCG/2 ML INJ IVP PRN ×4 (13:37→14:09)
[2017-10-10] MEDS ORDERED: HYDROCODONE/APAP 5/325 TAB ONE (14:07)
[2017-10-10] MEDS: HYDROCODONE/APAP 5/325 TAB PO PRN ×3 (14:09→20:36)
--- NOTE | 2017-10-10 18:02 | PCMIDPN ---
Assessment/Plan: Assessment: Right elbow complex fluid collection with bone breakdown. This is a chronic problem. Patient went to surgery for hardware removal and resection of diseased tissue. Samples were taken. Patient has had 2 previous fluid isolation samples which did not grow out any pathogens. We will continue with the 3 cefazolin doses for perioperative use but afterwards will hold off on further antibiotics until culture results and path results dictate. Plan: 1. Complete the cefazolin perioperative dosing. 2. Follow up on culture results and path results to dictate further treatment. 10/10/17 17:59 Subjective: Patient is walking around her room. Her right arm is in the postoperative dressing. She states she has some discomfort in the arm postoperatively. No fevers or chills. Objective: Cefazolin # 1 Vital Signs Temp Pulse Resp BP Pulse Ox 36.8 C 75 16 101/58 L 94 10/10/17 16:41 10/10/17 17:58 10/10/17 17:58 10/10/17 17:58 10/10/17 17:58 10/09/17 10/10/17 10/11/17 05:59 05:59 05:59 Intake Total 2250 Output Total 85 Balance 2165 - Physical Exam General Appearance: WD/WN, alert, no apparent distress, non-toxic Respiratory: lungs clear, normal breath sounds Cardiac/Chest: regular rate, rhythm, No tachycardia Extremities: No non-tender, No normal inspection (Right upper extremity wrapped postoperatively. Drains in place.) Skin: normal color, warm/dry, No rash Neuro/Psych: alert, normal mood/affect, oriented x 3 ICD10 Worksheet Patient Problems: Problems Problem Status Onset Abscess of elbow Acute Cellulitis Acute Cellulitis of right elbow Acute Fracture of iliac crest Acute Hardware complicating wound infection Acute Lupus Acute
[2017-10-10] MEDS: ceFAZolin 2 GM/DEXTROSE 100 ML IV SCH (21:07)
--- NOTE | 2017-10-10 23:27 | GOP ---
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 POSTOPERATIVE DIAGNOSIS: 1. 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 PROCEDURE PERFORMED: Right elbow extensive irrigation and debridement including muscle and bone, as well as hardware removal and deep cultures including bone cultures FINDINGS: SPECIMENS: The metal was sent. The bone of the distal humerus was sent for culture. The chronic in flammatory tissue was sent for both pathology and culture, three separate fluid specimens. Swabs wer e sent for culture. ESTIMATED BLOOD LOSS: 50 mL. INDICATIONS: This is a 66-year-old female who sustained this complex comminuted intra-articular dist al humerus fracture. I initially did an ORIF on her. She has complications of collapse and problem with hardware malunion. At one point I did remove 1 loose screw on her. I discussed at multiple erinn es and visits with her, at a minimum removing hardware, and also possible revisions of the fixation. At various points in her postoperative course she did refuse any other surgery throughout. Approxim ately 4 months ago she had an aspiration of the elbow done by another physician to look for any infec tion in preparation for possible total elbow replacement. She has some on and off chronic drainage t hrough this small incision since. She was recently admitted to the hospital with some increasing raul lulitis and drainage of this area. This did calm down, but I counseled on the risks and benefits aga in of hardware removal and deep cultures. The possibility of a chronic infected nonunion was strong. We discussed risks of nerve injury, particularly ulnar nerve, vascular injury, pain, arthritis, brina bility to other procedures due to infection, worsening of her symptoms, drainage, chronic wound, and even eventual amputation. She elected to proceed. Informed consent was obtained. All questions rosa isela loyola answered. She was marked preoperatively. DESCRIPTION OF PROCEDURE: She was taken to the operative suite, sterilely prepped and draped in the usual fashion. Time-out was performed to verify site, side, location, and there was agreement with t he team. The tourniquet was inflated. Utilizing the old incision, I dissected down deep. There was a signifi cant fluid pocket which was found and this was cultured. I isolated the ulnar hardware and removed t his. There was chronic inflammatory tissue which had metallosis all throughout, but particularly on the lateral side where I was working. I isolated another fluid pocket around the lateral plate and a round a loose screw that was lateral. I removed the loose screw laterally and this bone of the capit ellum that was loose. I isolated the lateral plate and removed this. I sent copious amounts of infl ammatory tissue, both for culture and for permanent pathology. I did not encounter any marybeth pus. I turned my attention medially. Through slow, blunt dissection I isolated the ulnar nerve and put a V esseloop around this. I worked carefully, protecting the ulnar nerve down to the medial plate and re moved the medial plate. The medial column of the fracture had appeared heal. The lateral column obv iously had not healed and a portion of this bone was also removed. Bony cultures were taken from dis chela humerus. There was more chronic inflammatory tissue and fluid that was cultured, again medially. I got x-rays to confirm all hardware had been removed and her humeral olecranon joint was reduced. She did have more range of motion when we were done. I released the tourniquet and obtained hemosta sis. Thoroughly irrigated with 3 L normal saline. She was closed with 0 PDS, 2-0 PDS, and 3-0 nylon . Placed in a splint, taken to PACU in stable condition with a drain in place, deep. She will be ad mitted to the hospital. She will undergo an ID consult and have prophylactic antibiotics. COMPLICATIONS: None. DRAINS: A ZAIDA drain. /[id number]/MODL
[2017-10-11] MEDS: HYDROCODONE/APAP 5/325 TAB PO PRN ×7 (01:59→20:50)
[2017-10-11] MEDS: ceFAZolin 2 GM/DEXTROSE 100 ML IV SCH (05:28)
--- NOTE | 2017-10-11 08:13 | SOAPPROG ---
SOAP Progress Note Assessment/Plan: Assessment: s/p I and D and HWR on 10/10 R elbow Plan: Gram stain negative awaiting culture and path results holding abx for now 1 lbs weight limit RUE continue drain 10/11/17 08:11 Subjective: pain in elbow controlled Objective: Vital Signs Temp Pulse Resp BP Pulse Ox 36.5 C 81 15 128/71 H 98 10/11/17 04:00 10/11/17 04:00 10/11/17 04:00 10/11/17 04:00 10/11/17 04:00 Microbiology 10/10/17 11:43 Gram Stain - Final Elbow - Eswab 10/10/17 11:43 Gram Stain - Final Elbow - Eswab 10/10/17 11:43 Gram Stain - Final Elbow - Eswab 10/10/17 11:43 Gram Stain - Final Elbow - Tissue 10/10/17 11:43 Gram Stain - Final Elbow - Eswab 10/10/17 10/11/17 10/12/17 05:59 05:59 05:59 Intake Total 2750 Output Total 950 Balance 1800 mild numbness in ulnar nerve distribution intact finger abduction and thumb adduction m/r nerves intact splint intact ICD10 Worksheet Patient Problems: Problems Problem Status Onset Abscess of elbow Acute Cellulitis Acute Cellulitis of right elbow Acute Fracture of iliac crest Acute Hardware complicating wound infection Acute Lupus Acute
[2017-10-11] MEDS: ENOXAPARIN 30 MG/0.3 ML SYR SC SCH (08:41)
--- NOTE | 2017-10-11 10:45 | PCMIDPN ---
Assessment/Plan: Assessment: Right elbow complex fluid collection with bone breakdown. This is a chronic problem. Patient went to surgery for hardware removal and resection of diseased tissue. Samples were taken. Patient has had 2 previous fluid isolation samples which did not grow out any pathogens. She is currently off all antibiotics and having no symptoms of infection. Her Gram stains from the fluid samples do not show any organisms. Cultures will be held for a total of 2 weeks. Plan: 1. No antibiotics at present. 2. Possible testing with Allergy and immunology as an outpatient for metal sensitivity. 10/10/17 17:59 10/11/17 18:15 Subjective: Patient is resting in her hospital room. She denies any new complaint. Right elbow and arm still is uncomfortable. No fevers or chills. Objective: No antibiotics Vital Signs Temp Pulse Resp BP Pulse Ox 36.5 C 93 16 132/83 H 100 10/11/17 04:00 10/11/17 08:00 10/11/17 08:00 10/11/17 08:00 10/11/17 08:00 Microbiology 10/10/17 11:43 Gram Stain - Final Elbow - Eswab 10/10/17 11:43 Gram Stain - Final Elbow - Eswab 10/10/17 11:43 Gram Stain - Final Elbow - Eswab 10/10/17 11:43 Gram Stain - Final Elbow - Tissue 10/10/17 11:43 Gram Stain - Final Elbow - Eswab 10/10/17 10/11/17 10/12/17 05:59 05:59 05:59 Intake Total 2750 500 Output Total 950 Balance 1800 500 - Physical Exam General Appearance: WD/WN, alert, no apparent distress, thin, non-toxic Respiratory: lungs clear, normal breath sounds, No respiratory distress Cardiac/Chest: regular rate, rhythm, No tachycardia Extremities: No non-tender, No normal inspection Neuro/Psych: alert, normal mood/affect, oriented x 3 ICD10 Worksheet Patient Problems: Problems Problem Status Onset Abscess of elbow Acute Cellulitis Acute Cellulitis of right elbow Acute Fracture of iliac crest Acute Hardware complicating wound infection Acute Lupus Acute
--- NOTE | 2017-10-11 12:29 | ASMTCMCOM ---
CM Note CM Note Notes: Pt un for R elbow non-union, ID consulting and PT/OT eval pending. CM to follow for d/c needs. Date Signed: 10/11/2017 12:28 PM Electronically Signed By:CONNOR Andrade
[2017-10-12] MEDS: HYDROCODONE/APAP 5/325 TAB PO PRN ×3 (02:02→09:12)
--- NOTE | 2017-10-12 07:51 | SOAPPROG ---
SOAP Progress Note Assessment/Plan: Assessment: s/p I and D and HWR on 10/10 R elbow Plan: Gram stain negative awaiting culture and path results holding abx for now 1 lbs weight limit RUE drain pulled d/c home today 10/11/17 08:11 10/12/17 07:50 Subjective: pain better Objective: Vital Signs Temp Pulse Resp BP Pulse Ox 36.9 C 67 16 110/50 L 92 10/11/17 23:24 10/11/17 23:24 10/11/17 23:24 10/11/17 23:24 10/11/17 23:24 Microbiology 10/10/17 11:43 Gram Stain - Final Elbow - Tissue 10/10/17 11:43 Gram Stain - Final Elbow - Eswab 10/10/17 11:43 Gram Stain - Final Elbow - Eswab 10/10/17 11:43 Gram Stain - Final Elbow - Eswab 10/10/17 11:43 Gram Stain - Final Elbow - Eswab 10/10/17 11:43 Mycobacterial Smear (JOAO) - Final Elbow - Tissue 10/11/17 10/12/17 10/13/17 05:59 05:59 05:59 Intake Total 2750 1850 Output Total 950 2940 Balance 1800 -1090 ulnar nerve function with still some parathesias ICD10 Worksheet Patient Problems: Problems Problem Status Onset Abscess of elbow Acute Cellulitis Acute Cellulitis of right elbow Acute Fracture of iliac crest Acute Hardware complicating wound infection Acute Lupus Acute
[2017-10-12 08:33] VITALS: BP 131/82; PULSE 93; RESP 17; TEMP 98; O2SAT 97
[2017-10-12] MEDS: ENOXAPARIN 30 MG/0.3 ML SYR SC SCH (09:12)
--- NOTE | 2017-10-12 12:32 | ASDISCHSUM ---
Discharge Information Plan Status:Home with No Needs Medically Cleared to Leave: Discharge Date:10/12/2017 12:26 PM CM D/C Disposition:Home, Routine, Self-Care ADT D/C Disposition:Home, Routine, Self-Care Projected Discharge Date:10/12/2017 12:26 PM Transportation at D/C: Discharge Delay Reason: Follow-Up Date:10/12/2017 12:26 PM Discharge Slot: Final Diagnosis: Placement Information Patient Contact Information Contact Name:OLIVIA Relationship: Address: Work Phone: City:[place] Alternate Phone: [facility] Code:[place] Email: Financial Information Financial Class: Primary Plan Desc:MEDICARE INPATIENT Primary Plan Number:[id number] Secondary Plan Desc:[facility] Secondary Plan Number:[id number] Assessment Information [facility] CM Progress Note CM Note CM Note Notes: Pt un for R elbow non-union, ID consulting and PT/OT eval pending. CM to follow for d/c needs. Date Signed: 10/11/2017 12:28 PM Electronically Signed By:CONNOR Andrade [facility] CM Progress Note CM Note CM Note Notes: Pt medically stable for d/c, no CM d/c needs identified. Date Signed: 10/12/2017 12:31 PM Electronically Signed By:CONNOR Andrade Intervention Information
--- NOTE | 2017-10-12 14:40 | GDS ---
[f rep st] DISCHARGE SUMMARY HOSPITAL COURSE: She was admitted after irrigation and debridement and hardware removal of her right elbow. It was drained. The drain did slow down and was able to be removed on the day of discharge. We followed her cultures, which remained negative until discharge. She met criteria for discharge home. CONSULTING PHYSICIANS: Infectious Disease. PROCEDURES: The irrigation and debridement and hardware removal of her right elbow. DISPOSITION: Home. DISCHARGE INSTRUCTIONS: She is on a regular diet. She is in a splint. She is on a 1-pound weight l imit with the right upper extremity. DISCHARGE MEDICATIONS: She was given prescriptions for hydrocodone for pain. She will not be on ant ibiotics at this point, given the more chronic inflammatory reaction that was seen at surgery, but we will follow the cultures closely, and she may be required to start antibiotics. We will see her samuel k in the office in 6 days for splint removal and wound check. /[id number]/MODL
== END 2017-10-12 12:26 | disposition home or self-care (01) | DRG 478 ==
LOC: F3E 10:08 → F3N 14:25
PROVIDERS: ADMIT Orthopaedic Surgery; ATTEND Orthopaedic Surgery
PROC: 0PBC0ZX Excision of Right Humeral Head, Open Approach, Diagnostic (ICD-10-PCS; principal; 2017-10-10 12:00)
PROC: 0PPC04Z Removal of Internal Fixation Device from Right Humeral Head, Open Approach (ICD-10-PCS; principal; 2017-10-10 12:00)
DX: M96.0 Pseudarthrosis after fusion or arthrodesis (principal); T84.84XA Pain due to internal orthopedic prosthetic devices, implants and grafts, initial encounter; J45.909 Unspecified asthma, uncomplicated; E03.9 Hypothyroidism, unspecified; R35.0 Frequency of micturition
CPT/HCPCS: 97165-GO; 97535-GO; G8987-GO-CI; G8988-GO-CH; G8989-GO-CH; J0690; J1650; J2250; J2370; J2405; J2704; J2765; J3010

== ENCOUNTER → 2017-11-22 | Outpatient (CLI) | payer OTHER | LOC: FIMAGING 11:57 | PROVIDERS: ATTEND Internal Medicine | DX: Z12.31 Encounter for screening mammogram for malignant neoplasm of breast (principal) ==

== ENCOUNTER 2017-11-27 10:31 | Inpatient (IN) | payer OTHER ==
[2017-11-27] MEDS ORDERED: LR 1,000 ML IV ONE (10:45)
[2017-11-27] MEDS ORDERED: BUPIVACAINE 0.5% 30 ML SDV ONE (11:11)
[2017-11-27 11:44] LABS: PLATELET COUNT 266 10^3/uL (150-400)
--- NOTE | 2017-11-27 11:53 | PDHPUP ---
History & Physical Update H&P update statement: This history and physical update is based on an assessment of the patient which was completed after admission or registration (within 24 hours), but prior to the surgery/procedure.
[2017-11-27] MEDS ORDERED: MIDAZOLAM 2 MG/2 ML VIAL IVP ONE (11:56)
--- NOTE | 2017-11-27 11:57 | PDANEPAE ---
ANE History of Present Illness here for elbow i and d ANE Past Medical History - Cardiovascular History Hx Hypertension: No Hx Arrhythmias: No Hx Chest Pain: No Hx Coronary Artery / Peripheral Vascular Disease: No Hx CHF / Valvular Disease: No Hx Palpitations: No - Pulmonary History Hx COPD: No Hx Asthma/Reactive Airway Disease: Yes Hx Recent Upper Respiratory Infection: No Hx Oxygen in Use at Home: No Hx Sleep Apnea: No Sleep Apnea Screening Result - Last Documented: Negative Pulmonary History Comment: instructed pt to bring inhalers to hospital - Neurologic History Hx Cerebrovascular Accident: No Hx Seizures: No Hx Dementia: No - Endocrine History Hx Diabetes: No Endocrine History Comment: hypothyroidism - Renal History Hx Renal Disorders: No Renal History Comment: frequency - Liver History Hx Hepatic Disorders: No - Neurological & Psychiatric Hx Hx Neurological and Psychiatric Disorders: Yes Neurological / Psychiatric History Comment: depression,inflammatory autoimmune - Cancer History Hx Cancer: No - Congenital Disorder History Hx Congenital Disorders: No - GI History Hx Gastrointestinal Disorders: No - Other Health History Other Health History: lupus. 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 open wound on Right elboe not healing - Chronic Pain History Chronic Pain: No - Surgical History Prior Surgeries: 07/2016 right elbow hardware repair with Chew. 03/14/16 Right distal humerus ORIF with Chew. right thumb arthroplasty ANE Review of Systems Review of systems is: negative Review of Systems: - Exercise capacity METS (RN): 4 METS ANE Patient History - Allergies Allergies/Adverse Reactions: acetaminophen [From Percocet] Allergy (Mild, Verified 10/09/17 17:04) Anxiety oxycodone HCl [From Percocet] Allergy (Mild, Verified 10/09/17 17:04) Anxiety - Home Medications Home medications: home medication list seen and reviewed Home Medications: Fluticasone/Salmeter 100/50Mcg [Advair 100/50 (*)] 1 puffs IH DAILY 02/02/14 [ Last Taken 11/27/17 05:00] Levothyroxine [Synthroid 88 mcg (*)] 88 mcg PO DAILY@02/02/14 [Last Taken 05:00] Liothyronine Sodium [Cytomel 5 mcg (*)] 15 mg PO DAILY@02/02/14 [Last Taken 11/27/17 05:00] Albuterol Hfa Anes Only [Proair Hfa Icu (*)] 1 - 2 puffs IH Q4-6PRN PRN [Last Taken 11/07/17] Liothyronine Sodium [Cytomel 5 mcg (*)] 10 mcg PO DAILY@1130 10/10/17 [Last Taken 11/26/17] buPROPion SR [Wellbutrin 150mg SR (*)] 150 mg PO BID@07,13 10/10/17 [Last Taken 11/27/17 05:00] Ascorbic Acid [Vitamin C 500 mg (*)] 500 mg PO DAILY 11/25/17 [Last Taken ] Cholecalciferol Vit D3 [Vitamin D3 (*)] 1,000 units PO DAILY 11/25/17 [Last Taken 11/27/17 05:00] Cyanocobalamin [Vitamin B12 (*)] 1,000 mcg PO DAILY 11/25/17 [Last Taken Unknown ] Herbals/Supplements -Info Only 1 ea PO DAILY 11/25/17 [Last Taken 11/26/17] Hydroxychloroquine Sulfate [Plaquenil 200 mg (*)] 200 mg PO HS 11/25/17 [Last Taken 11/26/17] [place]-3 Fatty Acids [Fish Oil 1000 mg (*)] 1,000 mg PO DAILY 11/25/17 [Last Taken 11/26/17] predniSONE 5 mg PO DAILY 11/25/17 [Last Taken 11/27/17 05:00] - NPO status NPO Status: no food or drink >8 hours NPO Since - Liquids (Date): 11/27/17 NPO Since - Liquids (Time): 05:00 NPO Since - Solids (Date): 11/26/17 NPO Since - Solids (Time): 08:00 - Smoking Hx Smoking Status: Never smoked - Family Anes Hx Family Hx Anesthesia Complications: mother- n/v ANE Labs/Vital Signs - Labs Result Diagrams: 11/27/17 11:39 - Vital Signs Vital Signs: reviewed preoperatively; see RN documention for details Blood Pressure: 131/72 Heart Rate: 87 Respiratory Rate: 14 O2 Sat (%): 100 Height: 152.4 cm Weight: 41.73 kg ANE Physical Exam - Airway Mallampati Score: Class 1 - Pulmonary Pulmonary: no respiratory distress - Cardiovascular Cardiovascular: regular rate and rhythym - ASA Status ASA Status: II ANE Anesthesia Plan Anesthesia Plan: GA w LMA
[2017-11-27] MEDS ORDERED: fentaNYL 100 MCG/2 ML INJ ONE ×3 (12:04→13:49)
[2017-11-27] MEDS ORDERED: PROPOFOL/EMULSION 500 MG/50 ML BOTTLE IV ONE (12:06)
[2017-11-27] MEDS ORDERED: NALOXONE HCL 0.4 MG/ML INJ IVP PRN (12:32)
[2017-11-27] MEDS ORDERED: ONDANSETRON 4 MG/2 ML VIAL IVP PRN (12:32)
[2017-11-27] MEDS ORDERED: HYDROmorphONE/DILAUDID 1 MG/ML INJ IVP PRN ×2 (12:32→13:35)
[2017-11-27] MEDS ORDERED: DEXAMETHASONE 4 MG/ML VIAL IVP PRN (12:32)
--- NOTE | 2017-11-27 13:35 | POSTOPPROG ---
Post Op Note Date of Operation: 11/27/17 Surgeon: Christiano Chew [employer] Apprentice: Fabiola Anesthesiologist: Tyrone Anesthesia: GET(General Endotracheal) Pre-op Diagnosis: R elbow draining wound Post-op Diagnosis: same Indication: above Procedure: purulence Inf/Abcess present in the surg proc area at time of surgery?: Yes Depth: Deep Incisional (Fascial) EBL: 50-100
[2017-11-27] MEDS: fentaNYL 100 MCG/2 ML INJ IVP PRN ×2 (13:50→13:55)
[2017-11-27] MEDS ORDERED: HYDROCODONE/APAP 5/325 TAB ONE (14:11)
[2017-11-27] MEDS: HYDROCODONE/APAP 5/325 TAB PO PRN ×4 (14:16→22:04)
[2017-11-27] MEDS: ceFAZolin 2 GM/DEXTROSE 100 ML IV SCH ×2 (15:30→22:03)
[2017-11-27] MEDS ORDERED: ALBUTEROL 200 PUFFS/18 GM MDI IH PRN (17:21)
[2017-11-27] MEDS ORDERED: HYDROXYCHLOROQUINE SULFATE 200 MG TAB PO SCH (18:00)
[2017-11-27] MEDS: HYDROXYCHLOROQUINE SULFATE 200 MG TAB PO SCH (18:31)
--- NOTE | 2017-11-27 23:18 | GOP ---
[f rep st] OPERATIVE REPORT DATE OF OPERATION: 11/27/2017 SURGEON: Christiano Chew MD PREOPERATIVE DIAGNOSIS: Right draining elbow wound sinus tract, status post resection arthroplasty. POSTOPERATIVE DIAGNOSIS: Right draining elbow wound sinus tract, status post resection arthroplasty. PROCEDURE PERFORMED: 1. Irrigation and debridement, right elbow, including bone. 2. Wound vacuum-assisted closure placement with irrigating wound vacuum-assisted closure. Wound miles surements are 5 cm x 2 cm x 4.5 cm in depth. FINDINGS: Slight amount of purulence in the joint where the resection arthroplasty had been performe d as well as inflammatory tissue and metallosis. SPECIMENS: Bone and deep tissue cultures as well as 2 swab cultures of the sinus track and joint. ESTIMATED BLOOD LOSS: 10 mL. INDICATIONS: This is a 67-year-old female. I had previously performed a hardware removal and I and D for a presumably infected elbow wound that had significant metallosis and inflammatory tissue. The size of her elbow and coloration improved. However, she developed a sinus tract in the middle of th is that extended down deep in the joint. Myself in consultation with Dr. Benjamin, advised her for surg ical debridement of this and she accepted. Discussed the risks and benefits of possible amputation, further wound management, need for further surgery, further ulnar nerve difficulties, neuritis, nerve injury, pain. She elected to proceed. Informed consent was obtained. All questions were answered. She was marked preoperatively. DESCRIPTION OF PROCEDURE: She was taken to the operative suite, sterilely prepped and draped in norm al fashion. Time-out was performed verifying side, site and location, agreed by all members of the t eam. The tourniquet was inflated without exsanguination. I extended the incision on either side of the si nus tract. I took a culture of the sinus tract and excised this. This got me down deep into the angel nt. There was small amount of purulence, so I took a swab. I sent copious amounts of tissue includin g some bone from deep medial joint out. Debrided other potentially infectious looking tissue. There was no other really gross purulence. There was a very small amount and the wound looked much improv ed from prior. There was scant metallosis which was removed. The tourniquet was let down, I obtaine d hemostasis. Dr. Benjamin came in at this point, evaluated the wound. We elected a wound VAC to this with an irrigating wound VAC. Closed the partial portion of the proximal wound, leaving the wound 4. 5 cm deep, 5 cm long, and 2 cm wide. The wound VAC was placed deep and superficial, and the wound VA C was sealed. The seal was obtained and irrigation was started. She was placed in a dressing and an anterior splint, taken to PACU in stable condition. She will be admitted to the hospital. CO-SURGEON: Kellie Benjamin MD. COMPLICATIONS: None. DRAINS: None. /[id number]/MODL
[2017-11-28] MEDS: HYDROCODONE/APAP 5/325 TAB PO PRN ×6 (01:58→20:17)
[2017-11-28] MEDS: LEVOTHYROXINE 88 MCG TAB PO SCH (03:54)
[2017-11-28] MEDS: LIOTHYRONINE SODIUM 5 MCG TAB PO SCH ×2 (04:28→11:55)
[2017-11-28] MEDS: FLUTICASONE/SALMETER 100/50MCG DISKUS IH SCH (08:36)
[2017-11-28] MEDS: buPROPion SR 150 MG TAB PO SCH ×2 (08:52→13:12)
[2017-11-28] MEDS: CHOLECALCIFEROL VIT D3 1,000 UNITS TAB PO SCH (08:52)
[2017-11-28] MEDS: CYANO/VITAMIN B12 1000 MCG TAB PO SCH (08:52)
[2017-11-28] MEDS: OMEGA-3 FATTY ACIDS 1,000 MG CAP PO SCH (08:52)
[2017-11-28] MEDS: ASCORBIC ACID 500 MG TAB PO SCH (08:52)
[2017-11-28] MEDS ORDERED: Herbals/Supplements -Info Only PO SCH (09:00)
--- NOTE | 2017-11-28 14:47 | WOCRNPDOC ---
WOCRN Advanced Assessment Note - Skin Integrity Problem, Advanced Assess Right Elbow Surgical Wound/Incision Dressing Type: Black Vac Foam (x2), Wound Vac Closure Description: Sutures, Approximated (superior and inferior to wound) Exudate Amount: Minimal Exudate Color: Red Exudate Characteristic(s): Bloody Integumentary Issue Intervention: Dressing Changed Saida Wound Swelling: Moderate Wound Bed Color: Red, Yellow Wound Bed Constitution: Smooth Tissue, Red/[place] - Non Granular Tissue, Tunneling (9oclock 4.2 cm), Undermining (1-4 oclock 3 cm) Wound Edges: Scarred, Thick Site Measurement - Head-to-Toe Length X Width X Depth (cm): 5x1x2.8 Skin Integrity Problem Comment: Removed cleanse dressing. Draped saida wound and bridged to medial upper arm. Adaptic touch over sutures. One piece of small black simplace to wound bed. Did not pack tunnel as it was very thin and was too tight for white foam placement. Vac started at -125 mm Hg continuous suction without leaks. Asked RN to rewrap with cast padding, yamini and splint. Education with patient on home vac use and plan. Patient needs OT to help her be able to disconnect the dressing from the canister as she cannot turn the connector. Next vac on Sunday.
--- NOTE | 2017-11-28 15:47 | ASMTCMCOM ---
CM Note CM Note Notes: Pt had drain of R elbow wound, currently has wound vac. Case management will need to be notified if pt requires wound vac at d/c. Pt lives alone. OT rec home vs. outpatient at this time, PT eval pending. CM to follow for d/c needs. Date Signed: 11/28/2017 03:47 PM Electronically Signed By:CONNOR Andrade
--- NOTE | 2017-11-28 17:03 | SOAPPROG ---
SOAP Progress Note Assessment/Plan: Assessment: s/p R elbow I and D 11/28/17 Plan: Gram pos cocci now Appreciate ID recs nwb R elbow stay in spling vac change sunday will need home vac set up 11/28/17 17:01 Subjective: some pain in elbow Objective: Vital Signs Temp Pulse Resp BP Pulse Ox 37.2 C 96 16 133/93 H 92 11/28/17 16:00 11/28/17 16:00 11/28/17 16:00 11/28/17 16:00 11/28/17 16:00 Microbiology 11/27/17 13:05 Mycobacterial Smear (JOAO) - Final Elbow - Tissue 11/27/17 12:45 Gram Stain - Final Elbow - Eswab 11/27/17 13:05 Gram Stain - Final Elbow - Tissue 11/27/17 12:50 Gram Stain - Final Elbow - Eswab 11/27/17 12:45 Mycobacterial Smear (JOAO) - Final Sinus - Eswab Mycobacterial Culture - Final 11/27/17 12:50 Mycobacterial Smear (JOAO) - Final Elbow - Eswab Mycobacterial Culture - Final Laboratory Results 11/27/17 11:39 11/27/17 11/28/17 11/29/17 05:59 05:59 05:59 Intake Total 1550 850 Output Total 1101 Balance 449 850 vac and dressing intact ICD10 Worksheet Patient Problems: Problems Problem Status Onset Abscess of elbow Acute Cellulitis Acute Cellulitis of right elbow Acute Fracture of iliac crest Acute Hardware complicating wound infection Acute Lupus Acute
[2017-11-28] MEDS: HYDROXYCHLOROQUINE SULFATE 200 MG TAB PO SCH (17:35)
[2017-11-28] MEDS: ACETAMN/DIPHENHYDRAMINE 500/25MG TAB PO PRN (20:16)
[2017-11-28] MEDS ORDERED: VANCOMYCIN HCL/NORMAL SALINE 250 ML IV SCH (21:00)
[2017-11-28] MEDS ORDERED: VANCOMYCIN 1 GM in D5W 250 ML IV SCH (21:00)
--- NOTE | 2017-11-28 21:04 | PCMIDPN ---
Assessment/Plan: Assessment/Plan: * Postoperative right elbow infection: Status post repeat incision and drainage with wound VAC placement. Sinus tract communicating into joint where purulence was noted. Gram stain of purulent material shows Gram-positive cocci with possible early growth of streptococcal species. No residual hardware in place as this was removed prior to current surgery. Will begin vancomycin 1 g IV Q 24 hr. Anticipate will need 6 week course of therapy. Await additional culture data to determine definitive antibiotic choice. Plan PICC line placement tomorrow. Risk and benefits of vancomycin were discussed with patient today. Prior pathology of bone did show non caseating granulomas without AFB or fungi noted on stains or by culture. Unclear if these findings were related to metallosis or other etiology. Time spent, greater than 35 min, of which greater than half was spent in education/counseling/coordination of care related to postoperative right elbow infection and plan of care. 11/28/17 21:01 11/28/17 21:08 Subjective: Patient previously seen by Dr. Andrade in the fall for postoperative inflammatory process of right elbow with findings suggesting significant component due to metallosis. Cultures were all negative at that point and patient was observed off antibiotics. Patient describes developing chronic drainage from the elbow which became purulent in nature. Associated with small area of erythema. Did not have associated constitutional symptoms. Notes from Dr. Andrade during prior hospital stay reviewed today. Patient was taken to the operating room for chronic draining sinus tract yesterday which was found to communicate to joint where purulent material was noted. Patient does not have any indwelling hardware in her arm currently. Objective: Vital Signs Temp Pulse Resp BP Pulse Ox 36.8 C 90 18 114/66 94 11/28/17 20:21 11/28/17 20:21 11/28/17 20:21 11/28/17 20:21 11/28/17 20:21 Microbiology 11/27/17 12:45 Gram Stain - Final Elbow - Eswab 11/27/17 12:50 Gram Stain - Final Elbow - Eswab 11/27/17 12:50 Mycobacterial Smear (JOAO) - Final Elbow - Eswab Mycobacterial Culture - Final 11/27/17 13:05 Gram Stain - Final Elbow - Tissue 11/27/17 13:05 Mycobacterial Smear (JOAO) - Final Elbow - Tissue 11/27/17 12:45 Mycobacterial Smear (JOAO) - Final Sinus - Eswab Mycobacterial Culture - Final Laboratory Results 11/27/17 11:39 11/27/17 11/28/17 11/29/17 05:59 05:59 05:59 Intake Total 1550 850 Output Total 1101 Balance 449 850 Prior pathology report 10/10/17: Right elbow for permanent tissue: -- Synovial tissue -- Noncaseating granulomatous inflammation -- Negative staining for AFB and fungi -- Mild chronic inflammation -- Fibrinous material with scattered bony fragments -- Portion of bone, no pathologic features - Physical Exam General Appearance: alert, no apparent distress, thin EENT: No conjunctival petechiae Respiratory: lungs clear, No respiratory distress Cardiac/Chest: regular rate, rhythm, systolic murmur (2/6 left and right upper sternal border) Extremities: inflammation (Right elbow dressed postoperatively) Abdomen: non-tender, No distended ICD10 Worksheet Patient Problems: Problems Problem Status Onset Abscess of elbow Acute Cellulitis Acute Cellulitis of right elbow Acute Fracture of iliac crest Acute Hardware complicating wound infection Acute Lupus Acute
[2017-11-29] MEDS: HYDROCODONE/APAP 5/325 TAB PO PRN ×6 (00:49→21:17)
[2017-11-29] MEDS: LEVOTHYROXINE 88 MCG TAB PO SCH (04:42)
[2017-11-29] MEDS: FLUTICASONE/SALMETER 100/50MCG DISKUS IH SCH (04:43)
[2017-11-29] MEDS: LIOTHYRONINE SODIUM 5 MCG TAB PO SCH ×2 (05:47→11:18)
[2017-11-29] MEDS: buPROPion SR 150 MG TAB PO SCH ×2 (08:59→13:01)
[2017-11-29] MEDS: ASCORBIC ACID 500 MG TAB PO SCH (09:06)
[2017-11-29] MEDS: CYANO/VITAMIN B12 1000 MCG TAB PO SCH (09:07)
[2017-11-29] MEDS: CHOLECALCIFEROL VIT D3 1,000 UNITS TAB PO SCH (09:07)
[2017-11-29] MEDS: OMEGA-3 FATTY ACIDS 1,000 MG CAP PO SCH (09:07)
--- NOTE | 2017-11-29 17:15 | SOAPPROG ---
SOAP Progress Note Assessment/Plan: Assessment: s/p R elbow I and D 11/28/17 Plan: Gram pos cocci, and species now growing, awaiting sensitivities Appreciate ID recs nwb R elbow stay in splint vac change sunday will need home vac set up need home antibiotics Discharge tomorrow if home vac and antibiotics can be arranged 11/28/17 17:01 11/29/17 17:13 Subjective: pain similar Objective: Vital Signs Temp Pulse Resp BP Pulse Ox 36.6 C 87 16 137/75 H 96 11/29/17 15:51 11/29/17 15:51 11/29/17 15:51 11/29/17 15:51 11/29/17 15:51 Microbiology 11/27/17 12:50 Gram Stain - Final Elbow - Eswab 11/27/17 12:45 Gram Stain - Final Elbow - Eswab 11/27/17 13:05 Gram Stain - Final Elbow - Tissue 11/27/17 12:50 Mycobacterial Smear (JOAO) - Final Elbow - Eswab Mycobacterial Culture - Final 11/27/17 13:05 Mycobacterial Smear (JOAO) - Final Elbow - Tissue Laboratory Results 11/27/17 11:39 11/28/17 11/29/17 11/30/17 05:59 05:59 05:59 Intake Total 1550 1150 550 Output Total 1101 Balance 449 1150 550 vac intact dressing intact ICD10 Worksheet Patient Problems: Problems Problem Status Onset Abscess of elbow Acute Cellulitis Acute Cellulitis of right elbow Acute Fracture of iliac crest Acute Hardware complicating wound infection Acute Lupus Acute
[2017-11-29] MEDS: HYDROXYCHLOROQUINE SULFATE 200 MG TAB PO SCH (17:23)
--- NOTE | 2017-11-29 17:41 | ASMTCMCOM ---
CM Note CM Note Notes: Pt will need wound vac and IV abx at dc. CM faxed wound vac info to [facility] and sent referral to [facility] for infusion. DC Plan: Home with wound vac/infusion/hc Date Signed: 11/29/2017 05:34 PM Electronically Signed By:Darcy Mukherjee RN
[2017-11-29] MEDS ORDERED: VANCOMYCIN HCL/NORMAL SALINE 250 ML IV SCH (21:00)
[2017-11-29] MEDS: ACETAMN/DIPHENHYDRAMINE 500/25MG TAB PO PRN (21:17)
--- NOTE | 2017-11-29 21:45 | SOAPPROG ---
SOAP Progress Note Assessment/Plan: Assessment: s/p debridement of elbow by Dr. Jeevan Gomez wound vac x 24 hours then changed to standard/ ABX per ID Will need home wound vac with home health S: Feeling improved O: No erythema on arm and wound vac to suction Plan: 11/29/17 21:45 11/29/17 21:45 Objective: Vital Signs Temp Pulse Resp BP Pulse Ox 36.8 C 90 14 118/81 H 94 11/29/17 21:19 11/29/17 21:19 11/29/17 21:19 11/29/17 21:19 11/29/17 21:19 Microbiology 11/27/17 12:50 Gram Stain - Final Elbow - Eswab 11/27/17 12:45 Gram Stain - Final Elbow - Eswab 11/27/17 13:05 Gram Stain - Final Elbow - Tissue 11/27/17 12:50 Mycobacterial Smear (JOAO) - Final Elbow - Eswab Mycobacterial Culture - Final 11/27/17 13:05 Mycobacterial Smear (JOAO) - Final Elbow - Tissue Laboratory Results 11/27/17 11:39 11/28/17 11/29/17 11/30/17 05:59 05:59 05:59 Intake Total 1550 1150 550 Output Total 1101 Balance 449 1150 550 ICD10 Worksheet Patient Problems: Problems Problem Status Onset Abscess of elbow Acute Cellulitis Acute Cellulitis of right elbow Acute Fracture of iliac crest Acute Hardware complicating wound infection Acute Lupus Acute
[2017-11-30 04:20] VITALS: TEMP 97.9
[2017-11-30] MEDS: LEVOTHYROXINE 88 MCG TAB PO SCH (04:21)
[2017-11-30] MEDS: HYDROCODONE/APAP 5/325 TAB PO PRN ×4 (04:25→15:07)
[2017-11-30] MEDS: FLUTICASONE/SALMETER 100/50MCG DISKUS IH SCH (05:22)
[2017-11-30] MEDS: LIOTHYRONINE SODIUM 5 MCG TAB PO SCH ×2 (05:22→12:03)
[2017-11-30] MEDS: buPROPion SR 150 MG TAB PO SCH ×2 (07:35→13:25)
[2017-11-30] MEDS ORDERED: ALTEPLASE 2 MG VIAL IVP PRN (08:02)
[2017-11-30 08:05] VITALS: BP 147/85; PULSE 94; RESP 16; O2SAT 96
[2017-11-30] MEDS ORDERED: cefTRIAXone 1 GM in STERILE WATER INJ 10 ML IV SCH (09:00)
[2017-11-30] MEDS: CYANO/VITAMIN B12 1000 MCG TAB PO SCH (10:18)
[2017-11-30] MEDS: OMEGA-3 FATTY ACIDS 1,000 MG CAP PO SCH (10:18)
[2017-11-30] MEDS: CHOLECALCIFEROL VIT D3 1,000 UNITS TAB PO SCH (10:18)
[2017-11-30] MEDS: ASCORBIC ACID 500 MG TAB PO SCH (10:18)
--- NOTE | 2017-11-30 12:09 | WOCRNPDOC ---
ELENACRJazmin Advanced Assessment Note - Skin Integrity Problem, Advanced Assess Right Elbow Surgical Wound/Incision Dressing Type: Adaptic Touch (over sutures proximal to wound bed), Black Vac Foam (2 pieces), Wound Vac Dressing Description: Intact Closure Description: Sutures (proximal to wound bed; one suture distal.) Exudate Amount: Minimal Exudate Color: Reddish/Yellow Exudate Characteristic(s): Serosanguinous Integumentary Issue Intervention: Dressing Changed Katie Wound Tissue: Swollen, Scarred Katie Wound Swelling: Moderate Wound Bed Color: Red, Yellow Wound Bed Constitution: Granulation Tissue (60%), Red/[place] - Non Granular Tissue (10%), Tunneling (tunnel @ 9 o'clock too narrow to explore w/ q-tip), Undermining (0.6cm from 1-4 o'clock), Adhered Slough (30%) Wound Edges: Well Defined Site Odor: None Site Measurement - Head-to-Toe Length X Width X Depth (cm): 5cmx0.9cmx2.1cm Skin Integrity Problem Comment: Wound bed w/ granulating tissues along margins and scattered in the base of the wound. Some adhered slough in wound base, w/ superficial appearance. Tunnel previously documented at 9 o'clock is now too narrow to explore, though I was able to insert the blunt end of a cotton-tipped applicator approx. 0.7 cm in that direction. Some remaining undermining, smaller than previous assessment on 11/28. Swelling throughout katie-wound tissues , however no obvious erythema observed. Patient reports site is much less tender than previous dressing changes. Adaptic Touch placed over intact sutures proximal to wound bed, and periwound skin prepped and draped. One piece of black foam placed into wound bed, and another piece used to bridge dressing away from the joint and up patient's R upper arm. Vac settings resume at - 125mmHg, no leaks. Report given to Dr. Kellie Benjamin. R arm re-wrapped w/ cast padding, followed by splint and ADAM wraps.
--- NOTE | 2017-11-30 13:37 | SOAPPROG ---
SOAP Progress Note Assessment/Plan: Assessment: s/p R elbow I and D 11/28/17 Plan: Gram pos cocci, and species now growing, awaiting sensitivities Appreciate ID recs nwb R elbow stay in splint vac changed, will need home vac machine discharge on ceftriaxone will start prednisone 5 mg and taper down for knee psuedogout flare 11/28/17 17:01 11/29/17 17:13 11/30/17 13:35 Subjective: left knee pain pain in arm improved Objective: Vital Signs Temp Pulse Resp BP Pulse Ox 36.6 C 94 16 147/85 H 96 11/30/17 08:00 11/30/17 08:00 11/30/17 08:00 11/30/17 08:00 11/30/17 08:00 Microbiology 11/27/17 12:50 Gram Stain - Final Elbow - Eswab 11/27/17 12:45 Gram Stain - Final Elbow - Eswab 11/27/17 13:05 Gram Stain - Final Elbow - Tissue Laboratory Results 11/27/17 11:39 11/29/17 11/30/17 12/01/17 05:59 05:59 05:59 Intake Total 1150 550 Balance 1150 550 vac intact ICD10 Worksheet Patient Problems: Problems Problem Status Onset Abscess of elbow Acute Cellulitis Acute Cellulitis of right elbow Acute Fracture of iliac crest Acute Hardware complicating wound infection Acute Lupus Acute
[2017-11-30] MEDS ORDERED: predniSONE 5 MG TAB PO SCH (13:45)
--- NOTE | 2017-11-30 13:48 | PDIAF ---
- Diagnosis Code Status: Full Code - Medication Management Discharge Medications: Medications to Continue on Transfer Fluticasone/Salmeter 100/50Mcg [Advair 100/50 (*)] 1 puffs IH DAILY 02/02/14 [ Last Taken 11/27/17 05:00] Levothyroxine [Synthroid 88 mcg (*)] 88 mcg PO DAILY@02/02/14 [Last Taken 05:00] Liothyronine Sodium [Cytomel 5 mcg (*)] 15 mcg PO DAILY@02/02/14 [Last Taken 11/27/17 05:00] Albuterol Hfa Anes Only [Proair Hfa Icu (*)] 1 - 2 puffs IH Q4-6PRN PRN [Last Taken 11/07/17] Liothyronine Sodium [Cytomel 5 mcg (*)] 10 mcg PO DAILY@1130 10/10/17 [Last Taken 11/26/17] buPROPion SR [Wellbutrin 150mg SR (*)] 150 mg PO BID@07,13 10/10/17 [Last Taken 11/27/17 05:00] Ascorbic Acid [Vitamin C 500 mg (*)] 500 mg PO DAILY 11/25/17 [Last Taken ] Cholecalciferol Vit D3 [Vitamin D3 (*)] 1,000 units PO DAILY 11/25/17 [Last Taken 11/27/17 05:00] Cyanocobalamin [Vitamin B12 (*)] 1,000 mcg PO DAILY 11/25/17 [Last Taken Unknown ] Herbals/Supplements -Info Only 1 ea PO DAILY 11/25/17 [Last Taken 11/26/17] Hydroxychloroquine Sulfate [Plaquenil 200 mg (*)] 200 mg PO DAILY@18 11/25/17 [ Last Taken 11/26/17] [place]-3 Fatty Acids [Fish Oil 1000 mg (*)] 1,000 mg PO DAILY 11/25/17 [Last Taken 11/26/17] Acetamn/Diphenhydramine 500/25 [Tylenol PM (*)] 1 - 2 each PO HS PRN tab [Last Taken Unknown] Hydrocodone/APAP 5/325 [[place] 5/325 (*)] 1 - 2 tab PO Q3HRS PRN #30 tab [Last Taken Unknown] Hydrocodone/Acetaminophen [Hydrocodon-Acetaminophen 5-325] 1 - 2 each PO Q6 #30 tablet 11/30/17 [Last Taken Unknown] cefTRIAXone [Rocephin 1 gm Vial] 1 gm IV DAILY #42 vial 11/30/17 [Last Taken Unknown] predniSONE 5 mg PO DAILY #14 tab 11/30/17 [Last Taken Unknown] Prison Antibiotics: ceftriaxone 1g q 24hr Prison Antibiotic Stop Date: 01/11/18 Discharge Medications: Refer to the Discharge Home Medication list for PRN reason. PICC Care - Routine: Yes - Orders Services needed: Home Care, Certified [facility] Face to Face: I certify that this patient was under my care and that I had the required [id number] encounter meeting the encounter requirements on the discharge day. My findings support the fact that the patient is homebound as defined in Home Care Face to Face Continued: CMS Chapter 7 Medicare Benefits Manual 30.1.1 , The condition of the patient is such that there exists a normal inability to leave home and consequently, leaving home would require a considerable and taxing effort. Isolation Type: None Diet Recommendation: no restrictions on diet Diet Texture: Regular Texture Diet Wound Care Instructions: wound vac changes Sunday and - Follow Up Care Current Providers and Referrals: Christiano Chew MD [Medical Doctor] - Jayashree Lira MD [Primary Care Provider] - [facility] [Clinic] - (sunday and if home care not availible)
--- NOTE | 2017-11-30 16:38 | PCMIDPN ---
Assessment/Plan: Assessment: R elbow granulicatella infection - de facto osteomyelitis. Doing well on ceftriaxone. Plan: 1) Continue ceftriaxone 1g IV q 24 hours for 6 weeks. 2) Follow weekly standard labs. 3) Arrange for daily infusion of abx at infusion center. 11/30/17 16:35 Subjective: Patient states her elbow has been stable -- still with some postoperative pain. No fevers. Objective: ceftriaxone #1 Vital Signs Temp Pulse Resp BP Pulse Ox 36.6 C 94 16 147/85 H 96 11/30/17 08:00 11/30/17 08:00 11/30/17 08:00 11/30/17 08:00 11/30/17 08:00 Microbiology 11/27/17 12:50 Gram Stain - Final Elbow - Eswab 11/27/17 12:45 Gram Stain - Final Elbow - Eswab 11/27/17 13:05 Gram Stain - Final Elbow - Tissue Laboratory Results 11/27/17 11:39 11/29/17 11/30/17 12/01/17 05:59 05:59 05:59 Intake Total 1150 550 Balance 1150 550 - Physical Exam General Appearance: WD/WN, alert, no apparent distress, non-toxic Respiratory: lungs clear, normal breath sounds, No respiratory distress Cardiac/Chest: regular rate, rhythm, No tachycardia Extremities: non-tender, No normal inspection, No erythema Skin: normal color, warm/dry, No rash Neuro/Psych: alert, normal mood/affect, oriented x 3 ICD10 Worksheet Patient Problems: Problems Problem Status Onset Abscess of elbow Acute Cellulitis Acute Cellulitis of right elbow Acute Fracture of iliac crest Acute Hardware complicating wound infection Acute Lupus Acute
--- NOTE | 2017-11-30 16:46 | ASMTCMCOM ---
CM Note CM Note Notes: Chart reviewed. Was set up for HHC and home infusion but ID feels that infusion center here would be more appropriate. She has received PICC, she has been accepted by [facility]. Wound vac approved. She has a rdie home from a friend. Spoke with Sayra at [facility] who will ask Dr. Andrade to place infusion orders. CM available if needs arise. Date Signed: 11/30/2017 04:46 PM Electronically Signed By:Maddison Sinha RN
--- NOTE | 2017-12-01 08:54 | GDS ---
[f rep st] DISCHARGE SUMMARY DIAGNOSIS: Right elbow infection and osteomyelitis. HOSPITAL COURSE: She was admitted after irrigation and debridement, wound VAC placement in the right elbow. Cultures returned positive and she had a wound VAC change twice in the hospital. We were ab le to arrange IV antibiotics of ceftriaxone for her, as well as a home wound VAC. She met criteria f or discharge and was discharged that day. CONSULTING PHYSICIANS: Dr. Kellie Hicks with general wound care surgery, and Dr. Kendall, and Dr. Andrade with Infectious Disease, and Wound Care consult. CONDITION AT DISCHARGE: Stable. PROCEDURES: Irrigation and debridement, wound VAC placement, as well as wound VAC changes, and PICC placement. She was sent home with a PICC line. She was sent home to get daily antibiotics of ceftriaxone 1 g. She is sent home with a plan for wound VAC changes and home care wound VAC. She will follow up with the [facility] Care [facility] for wound changes, as well as for wound checks, as well as myself to monitor th e progress of the infection, and with antibiotics. She will start her previous home medications as abilio andino. She will call or come back to the hospital if she has any concerns of wound VAC failure, antibi otic problems or reactions, chest pain, shortness of breath, or other concerns. /[id number]/MODL
== END 2017-11-30 18:50 | disposition home health service (06) | DRG 857 ==
LOC: F3N 10:31 → F3E 11-28 16:29
PROVIDERS: ADMIT Orthopaedic Surgery; ATTEND Orthopaedic Surgery
PROC: 0RBL0ZZ Excision of Right Elbow Joint, Open Approach (ICD-10-PCS; principal; 2017-11-27 12:00)
PROC: 3E1U38Z Irrigation of Joints using Irrigating Substance, Percutaneous Approach (ICD-10-PCS; principal; 2017-11-27 12:00)
PROC: 02HV33Z Insertion of Infusion Device into Superior Vena Cava, Percutaneous Approach (ICD-10-PCS; 2017-11-30)
DX: T81.4XXA Infection following a procedure, initial encounter (principal); M25.121 Fistula, right elbow; B96.89 Other specified bacterial agents as the cause of diseases classified elsewhere; T84.89XA Other specified complication of internal orthopedic prosthetic devices, implants and grafts, initial encounter; M86.9 Osteomyelitis, unspecified; J45.909 Unspecified asthma, uncomplicated; E03.9 Hypothyroidism, unspecified; F32.9 Major depressive disorder, single episode, unspecified
CPT/HCPCS: 97161-GP; 97165-GO; C1751; G8978-GP-CI; G8979-GP-CI; G8980-GP-CI; G8987-GO-CJ; G8988-GO-CI; J0690; J0696; J2250; J2704; J3010; J3370; J7512

== ENCOUNTER 2017-12-04 01:49 | Emergency (ER) | payer OTHER ==
[2017-12-04 02:00] VITALS: RESP 18
--- NOTE | 2017-12-04 02:02 | EDPHY ---
H & P Stated Complaint: bleeding from picc site placed on sunday HPI/ROS: HPI CHIEF COMPLAINT: Bleeding from PICC line HISTORY OF PRESENT ILLNESS: Patient presents emergency room as she woke up this evening out of sleep and noticed that there is some blood at her PICC line site. She is unsure if she caught it on anything. Does not hurt her. There is no signs of infection. She has a PICC line located in her left upper extremity. There is no abnormal swelling. No tenderness. Blood is present around the PICC insertion site. Past Medical History: Right elbow wound, right elbow infection Past Surgical History: Right elbow surgery for washout of infection Social History: Denies drugs alcohol tobacco. Family History: Noncontributory ROS REVIEW OF SYSTEMS: A comprehensive 10 point review of systems is otherwise negative aside from elements mentioned in the history of present illness. Exam Constitutional triage nursing summary reviewed, vital signs reviewed, awake/ alert. Eyes normal conjunctivae and sclera, EOMI, PERRLA. HENT normal inspection, atraumatic, moist mucus membranes, no epistaxis, neck supple/ no meningismus, no raccoon eyes. Respiratory clear to auscultation bilaterally, normal breath sounds, no respiratory distress, no wheezing. Cardiovascular rate normal, regular rhythm, no murmur, no edema, distal pulses normal. Gastrointestinal soft, non-tender, no rebound, no guarding, normal bowel sounds, no distension, no pulsatile mass. Genitourinary no CVA tenderness. Musculoskeletal left upper extremity: This shows left upper extremity PICC insertion site. Distally she is a good radial pulse. Good cap refill, no abnormal arm swelling, Biopatch and Tegaderm dressing in place, blood is present. Dark purplish clot. Around the PICC entrance site. No pus. no midline vertebral tenderness, full range of motion, no calf swelling, no tenderness of extremities, no meningismus, good pulses, neurovascularly intact. Skin pink, warm, & dry, no rash, skin atraumatic. Neurologic awake, alert and oriented x 3, AAOx3, moves all 4 extremities equally, motor intact, sensory intact, CN II-XII intact, normal cerebellar, normal vision, normal speech. Psychiatric normal mood/affect. Heme/Lymph/Immune no lymphadenopathy. Differential Diagnosis: Includes but is not limited to in a particular order PICC site bleeding, trauma to the x-ray insertion, evaluate for further bleeding , evaluate for infection. Medical Decision Making: Plan for this patient removed the dressing and the PICC line sterilely cleaned up patient there is no infection make sure does not continue bleed and re-evaluate. Basic blood work. Re-evaluation: 0234: This patient's PICC line has been cleaned and evaluated. There is no evidence of significant bleeding. There is slight venous oozing around the site but no longer active. No signs of infection specifically no redness, no pus. The PICC line appears to be working in appropriate position. We did review her blood work is unremarkable. Replaced replaced her dressing. We have also given her a new stocking net as the other 1 was rather small it may be contributing to the movement of the PICC line causing bleeding at the injury site. New Biopatch applied. New Tegaderm. New netting. Source: Patient - Personal History Current Tetanus/Diphtheria Vaccine: Yes Current Tetanus Diphtheria and Acellular Pertussis (TDAP): Yes Tetanus Vaccine Date: 02/02/2014 - Medical/Surgical History Hx Asthma: Yes Hx Chronic Respiratory Disease: No Hx Diabetes: No Hx Cardiac Disease: No Hx Renal Disease: No Hx Cirrhosis: No Hx Alcoholism: No Hx HIV/AIDS: No Hx Splenectomy or Spleen Trauma: No Other PMH: Hypothyroid, Lupus, depression, Asthma, ORIF R distal humerus, pseudo -gout, - Social History Smoking Status: Never smoked Constitutional: Initial Vital Signs Temperature (C) 36.4 C 12/04/17 01:56 Heart Rate 89 12/04/17 01:56 Respiratory Rate 18 12/04/17 01:56 O2 Sat (%) 98 12/04/17 01:56 O2 Delivery Mode Room Air Allergies/Adverse Reactions: oxycodone HCl [From Percocet] Allergy (Mild, Verified 10/09/17 17:04) Anxiety Home Medications: Medication Instructions Recorded Fluticasone/Salmeter 100/50Mcg 1 puffs IH DAILY 02/02/14 [Advair 100/50 (*)] Levothyroxine [Synthroid 88 mcg 88 mcg PO DAILY@02/02/14 (*)] Liothyronine Sodium [Cytomel 5 mcg 15 mcg PO DAILY@02/02/14 (*)] Albuterol Hfa Anes Only [Proair 1 - 2 puffs IH Q4-6PRN PRN 10/09/17 Hfa Icu (*)] Liothyronine Sodium [Cytomel 5 mcg 10 mcg PO DAILY@1130 10/10/17 (*)] buPROPion SR [Wellbutrin 150mg SR 150 mg PO BID@07,13 10/10/17 (*)] Ascorbic Acid [Vitamin C 500 mg 500 mg PO DAILY 11/25/17 (*)] Cholecalciferol Vit D3 [Vitamin D3 1,000 units PO DAILY 11/25/17 (*)] Cyanocobalamin [Vitamin B12 (*)] 1,000 mcg PO DAILY 11/25/17 Herbals/Supplements -Info Only 1 ea PO DAILY 11/25/17 Hydroxychloroquine Sulfate 200 mg PO DAILY@18 11/25/17 [Plaquenil 200 mg (*)] [place]-3 Fatty Acids [Fish Oil 1000 1,000 mg PO DAILY 11/25/17 mg (*)] Acetamn/Diphenhydramine 500/25 1 - 2 each PO HS PRN tab 11/30/17 [Tylenol PM (*)] Hydrocodone/APAP 5/325 [[place] 1 - 2 tab PO Q3HRS PRN #30 tab 11/30/17 5/325 (*)] Hydrocodone/Acetaminophen 1 - 2 each PO Q6 #30 tablet 11/30/17 [Hydrocodon-Acetaminophen 5-325] cefTRIAXone [Rocephin 1 gm Vial] 1 gm IV DAILY #42 vial 11/30/17 predniSONE 5 mg PO DAILY #14 tab 11/30/17 Compounded Progesterone 0.5 tab 12/01/17 Medical Decision Making - Data Points Laboratory Results: Laboratory Results 12/04/17 02:20 12/04/17 12/04/17 02:20 02:15 WBC 4.38 10^3/uL 10^3/uL (3.80-9.50) RBC 3.61 10^6/uL L 10^6/uL (4.18-5.33) Hgb 12.2 g/dL L g/dL (12.6-16.3) Hct 33.6 % L % (38.0-47.0) MCV 93.1 fL fL (81.5-99.8) MCH 33.8 pg pg (27.9-34.1) MCHC 36.3 g/dL g/dL (32.4-36.7) RDW 12.3 % % (11.5-15.2) Plt Count 266 10^3/uL 10^3/uL (150-400) MPV 8.3 fL L fL (8.7-11.7) Neut % (Auto) 44.2 % % (39.3-74.2) Lymph % (Auto) 34.9 % % (15.0-45.0) [place] % (Auto) 13.7 % H % (4.5-13.0) Eos % (Auto) 5.9 % % (0.6-7.6) Baso % (Auto) 1.1 % % (0.3-1.7) Nucleat RBC Rel Count 0.0 % % (0.0-0.2) Absolute Neuts (auto) 1.93 10^3/uL 10^3/uL (1.70-6.50) Absolute Lymphs (auto) 1.53 10^3/uL 10^3/uL (1.00-3.00) Absolute Monos (auto) 0.60 10^3/uL 10^3/uL (0.30-0.80) Absolute Eos (auto) 0.26 10^3/uL 10^3/uL (0.03-0.40) Absolute Basos (auto) 0.05 10^3/uL 10^3/uL (0.02-0.10) Absolute Nucleated RBC 0.00 10^3/uL 10^3/uL (0-0.01) Immature Gran % 0.2 % % (0.0-1.1) Immature Gran # 0.01 10^3/uL 10^3/uL (0.00-0.10) Sodium Pending Potassium Pending Chloride Pending Carbon Dioxide Pending Anion Gap Pending BUN Pending Creatinine Pending Estimated GFR Pending Glucose Pending Calcium Pending Departure - Departure Disposition: Home, Routine, Self-Care Clinical Impression: Bleeding from PICC line Qualifiers: Encounter type: initial encounter Qualified Code(s): T82.838A - Hemorrhage due to vascular prosthetic devices, implants and grafts, initial encounter Condition: Good Instructions: Peripherally Inserted Central Catheters and Midline Catheters in... (DC) Additional Instructions: 1. Return emergency room if you have any further questions or concerns. Referrals: Jayashree Lira MD [Primary Care Provider] - As per Instructions
[2017-12-04 02:28] LABS: PLATELET COUNT 266 10^3/uL (150-400)
[2017-12-04 03:02] VITALS: BP 156/94; PULSE 79; TEMP 97.9; O2SAT 97
== END 2017-12-04 03:04 | disposition home or self-care (01) ==
DX: T82.838A Hemorrhage due to vascular prosthetic devices, implants and grafts, initial encounter (principal); J45.909 Unspecified asthma, uncomplicated; Y82.8 Other medical devices associated with adverse incidents

== ENCOUNTER 2017-12-23 12:19 | Emergency (ER) | payer OTHER ==
[2017-12-23 12:26] VITALS: RESP 18
[2017-12-23 14:29] VITALS: TEMP 97.5
--- NOTE | 2017-12-23 14:32 | EDPHY ---
H & P Smoking Status: Never smoked Time Seen by Provider: 12/23/17 13:28 HPI/ROS: Chief complaint. Possible osteomyelitis right elbow HPI. 67-year-old female presents emergency department with concern for osteomyelitis. The patient had a closed right elbow fracture 2 years ago that required ORIF. Over the past several months she has had an open wound and drainage to the right elbow. She has had increased drainage from the right elbow the last 2 days. She has not had fever. She has had some increased swelling however. She had metal taken out September 2017. Patient has a PICC line and is having daily IV Rocephin and using a wound VAC. Due to the increased swelling and drainage she is referred to the emergency department for evaluation for possible osteomyelitis. ROS Constitutional. no fever/chills, no weakness Eyes. no problems with vision ENT. no sore throat, no nasal drainage Cardiovascular. no chest pain Respiratory. no shortness of breath, no cough Abdominal. no abdominal pain, no nausea/vomiting, no diarrhea . no problems urinating MS. Right elbow pain, swelling, drainage Skin. no rash Lymph. no swollen glands Neuro. no headache, no dizziness, no difficulty walking or with speech (Cy Pizarro) Past Medical/Surgical History: Hypothyroid, lupus, depression, asthma, ORIF right elbow (Cy Pizarro) Social History: Single, nonsmoker, no alcohol (Cy Pizarro) Physical Exam: General Appearance: Alert well-developed female mild distress vital signs are stable. She is afebrile Eyes: Pupils equal and round no pallor or injection. ENT, Mouth: Mucous membranes are moist. Respiratory: There are no retractions, lungs are clear to auscultation. Cardiovascular: Regular rate and rhythm. Gastrointestinal: Abdomen is soft and nontender, no masses, bowel sounds normal. Neurological: Awake and alert, sensory and motor exams grossly normal. Skin: Warm and dry, no rashes. Musculoskeletal: Neck is supple nontender. Extremities right elbow shows swelling especially over the proximal radius. There is about a 1 in open incision this draining yellowish discharge. She does have fairly good range of motion. Distal motor vascular sensitivity is somewhat intact though she has decreased sensation to fingers 4 and 5 that apparently have been present since her surgeries with injury to the ulnar nerve Psychiatric: Patient is oriented X 3, there is no agitation. (Cy Pizarro) Constitutional: Initial Vital Signs Temperature (C) 36.8 C 12/23/17 12:22 Heart Rate 86 12/23/17 12:22 Respiratory Rate 18 12/23/17 12:22 Blood Pressure 155/105 H 12/23/17 12:22 O2 Sat (%) 98 12/23/17 12:22 O2 Delivery Mode Room Air Allergies/Adverse Reactions: oxycodone HCl [From Percocet] Allergy (Mild, Verified 12/23/17 12:20) Anxiety Home Medications: Medication Instructions Recorded Fluticasone/Salmeter 100/50Mcg 1 puffs IH DAILY 02/02/14 [Advair 100/50 (*)] Levothyroxine [Synthroid 88 mcg 88 mcg PO DAILY@02/02/14 (*)] Liothyronine Sodium [Cytomel 5 mcg 15 mcg PO DAILY@02/02/14 (*)] Albuterol Hfa Anes Only [Proair 1 - 2 puffs IH Q4-6PRN PRN 10/09/17 Hfa Icu (*)] Liothyronine Sodium [Cytomel 5 mcg 10 mcg PO DAILY@1130 10/10/17 (*)] buPROPion SR [Wellbutrin 150mg SR 150 mg PO BID@07,13 10/10/17 (*)] Ascorbic Acid [Vitamin C 500 mg 500 mg PO DAILY 11/25/17 (*)] Cholecalciferol Vit D3 [Vitamin D3 1,000 units PO DAILY 11/25/17 (*)] Cyanocobalamin [Vitamin B12 (*)] 1,000 mcg PO DAILY 11/25/17 Herbals/Supplements -Info Only 1 ea PO DAILY 11/25/17 Hydroxychloroquine Sulfate 200 mg PO DAILY@18 11/25/17 [Plaquenil 200 mg (*)] [place]-3 Fatty Acids [Fish Oil 1000 1,000 mg PO DAILY 11/25/17 mg (*)] Acetamn/Diphenhydramine 500/25 1 - 2 each PO HS PRN tab 11/30/17 [Tylenol PM (*)] Hydrocodone/APAP 5/325 [[place] 1 - 2 tab PO Q3HRS PRN #30 tab 11/30/17 5/325 (*)] Hydrocodone/Acetaminophen 1 - 2 each PO Q6 #30 tablet 11/30/17 [Hydrocodon-Acetaminophen 5-325] cefTRIAXone [Rocephin 1 gm Vial] 1 gm IV DAILY #42 vial 11/30/17 Compounded Progesterone 0.5 tab 12/01/17 Nystatin 12/23/17 Medical Decision Making - Diagnostics Imaging Results: Imaging Impressions Upper Extremity MRI 12/23/17 14:30 Impression: Interval removal of the hardware from open reduction and internal fixation of the distal humerus and proximal radius with progressive erosive change in the distal humerus, proximal ulna, and proximal radius with bone marrow edema and enhancement, indicating osteomyelitis. Joint effusion with thick synovium with enhancement. Surrounding myositis. Results called to Dr. Denita Saini. MRI with and without contrast of right elbow: Significant for extensive bony erosion and chronic osteomyelitis throughout the elbow. Results were discussed with staff radiologist Dr. Chavez German. Please see his report below for further details. (Denita Garza) Procedures: Ativan orally prior to MRI (Cy Pizarro) ED Course/Re-evaluation: I took over care of this patient at 3:00 p.m.. This patient has a history of chronic osteomyelitis of the right elbow. She currently has a PICC line in place. She is being managed by infectious disease. She is currently receiving Rocephin. She has had increased drainage and room redness involving the right elbow. We are waiting on an MRI of the right elbow to evaluate for osteomyelitis. Please see dictation by Dr. Pizarro for further details on history. 4:35 p.m., evaluate this patient. She appears very clinically stable. Her vital signs were reviewed and are normal. She is afebrile. She told me that she has had worsening swelling to the left over elbow infection site. She reports that she has had a wound VAC and that she had some drainage from the wound VAC earlier today. She was seen in the wound clinic by the physician ssn/ssbn assistant navigator for general surgeon Dr. Kellie Benjamin and then was sent down to the emergency department for imaging as noted above. I discussed results of her MRI with her. Her vital signs were reviewed. I will discuss with Dr. Cy Kendall of Infectious Disease who is familiar with her regarding further treatment and disposition. 4:40 p.m., I spoke with Dr. yC Kendall of the Infectious Disease Clinic. He actually saw her in wound clinic just prior to her coming to the emergency department. He agrees with my assessment. At this time the patient is unlikely to benefit from inpatient treatment. In consultation with Dr. Kendall, plan will be to have the patient follow up with Dr. Christiano Chew her orthopedic surgeon tomorrow morning for re-evaluation and to discuss debridement options. Dr. Kendall will also coordinate with Dr. Anish Andrade his partner with the Infectious Disease service who is very familiar with this patient as well as Dr. Chew on further management. The patient is on Rocephin. Her cultures grew out a strep species. Dr. Kendall did not feel there is need for additional antibiotic coverage or obtaining additional cultures at this time. This plan was discussed with the patient. She is in full agreement. Return to emergency department precautions were thoroughly reviewed. She will call the office of Dr. Chew tomorrow morning for follow- up tomorrow. All of her questions were answered. She was discharged in good condition. (Denita Garza) Care Turn Over: Care to Dr. Garza at 3:00 p.m. (Cy Pizarro) - Data Points Laboratory Results: Laboratory Results 12/23/17 14:45 12/23/17 14:45 12/23/17 12/23/17 14:45 14:45 WBC 5.72 10^3/uL 10^3/uL (3.80-9.50) RBC 3.84 10^6/uL L 10^6/uL (4.18-5.33) Hgb 12.7 g/dL g/dL (12.6-16.3) Hct 36.1 % L % (38.0-47.0) MCV 94.0 fL fL (81.5-99.8) MCH 33.1 pg pg (27.9-34.1) MCHC 35.2 g/dL g/dL (32.4-36.7) RDW 12.7 % % (11.5-15.2) Plt Count 249 10^3/uL 10^3/uL (150-400) MPV 8.9 fL fL (8.7-11.7) Neut % (Auto) 65.6 % % (39.3-74.2) Lymph % (Auto) 19.2 % % (15.0-45.0) [place] % (Auto) 12.1 % % (4.5-13.0) Eos % (Auto) 1.6 % % (0.6-7.6) Baso % (Auto) 1.2 % % (0.3-1.7) Nucleat RBC Rel Count 0.0 % % (0.0-0.2) Absolute Neuts (auto) 3.75 10^3/uL 10^3/uL (1.70-6.50) Absolute Lymphs (auto) 1.10 10^3/uL 10^3/uL (1.00-3.00) Absolute Monos (auto) 0.69 10^3/uL 10^3/uL (0.30-0.80) Absolute Eos (auto) 0.09 10^3/uL 10^3/uL (0.03-0.40) Absolute Basos (auto) 0.07 10^3/uL 10^3/uL (0.02-0.10) Absolute Nucleated RBC 0.00 10^3/uL 10^3/uL (0-0.01) Immature Gran % 0.3 % % (0.0-1.1) Immature Gran # 0.02 10^3/uL 10^3/uL (0.00-0.10) Sodium 139 mEq/L mEq/L (135-145) Potassium 4.4 mEq/L mEq/L (3.5-5.2) Chloride 101 mEq/L mEq/L (97-110) Carbon Dioxide 26 mEq/l mEq/l (22-31) Anion Gap 12 mEq/L mEq/L (8-16) BUN 8 mg/dL mg/dL (7-23) Creatinine 0.4 mg/dL L mg/dL (0.6-1.0) Estimated GFR > 60 Glucose 95 mg/dL mg/dL (70-100) Calcium 9.6 mg/dL mg/dL (8.5-10.4) Medications Given: Discontinued Medications Lorazepam (Ativan) 1 mg PO EDNOW ONE Stop: 12/23/17 14:47 Last Admin: 12/23/17 14:48 Dose: 1 mg Departure - Departure Disposition: Home, Routine, Self-Care Clinical Impression: Osteomyelitis of left elbow Condition: Good Instructions: Osteomyelitis (ED), Wound Infection (ED) Additional Instructions: Read and follow provided instructions. Follow-up with your orthopedic surgeon, Dr. Christiano Chew, tomorrow in his office for re-evaluation and discussed further options of treatment. As I discussed with you in the emergency department, I spoke with Dr. Cy Kendall. Dr. Cy Kendall will help coordinate your care with Dr. Chew as well as Dr. Andrade. You will also have to follow up with the wound clinic to have the wound VAC replaced. In the meantime in the emergency department now will place wet to dry dressings. Continue your antibiotics and medications as prescribed. Return to the emergency department for worsening pain, swelling in your upper extremity, redness in your upper extremity, fever or other serious concerns. Referrals: Christiano Chew MD [Medical Doctor] - As per Instructions Anish Andrade MD [Medical Doctor] - As per Instructions
[2017-12-23] MEDS ORDERED: GADOBUTROL 10 ML VIAL IVP ONE (14:43)
[2017-12-23] MEDS ORDERED: LORazepam 1 MG TAB PO ONE (14:46)
[2017-12-23 15:06] LABS: PLATELET COUNT 249 10^3/uL (150-400)
[2017-12-23 17:17] VITALS: BP 145/96; PULSE 99; O2SAT 96
== END 2017-12-23 18:05 | disposition home or self-care (01) ==
DX: M86.9 Osteomyelitis, unspecified (principal); J45.909 Unspecified asthma, uncomplicated
CPT/HCPCS: A9585

== ENCOUNTER 2018-01-05 22:50 | Emergency (ER) | payer OTHER ==
[2018-01-05 22:57] VITALS: RESP 18
--- NOTE | 2018-01-05 23:38 | EDPHY ---
H & P Stated Complaint: R elbow infection- dressing to be changed Time Seen by Provider: 01/05/18 23:17 HPI/ROS: HPI The patient presents with drainage from her right elbow wound VAC. She has a history of right-sided elbow fracture with nonunion, complicated with osteomyelitis of radius, ulna, olecranon. She is currently being treated with a wound VAC as well as IV antibiotics at the infusion center. Over the last day her wound VAC has been sound inguinal alarm and draining more than usual. She noticed that there is fluid under the bandages and this seems to be causing an improper seal. She called her treating physician Dr. Benjamin who encouraged her to come to the emergency department. REVIEW OF SYSTEMS Constitutional: No fever, no chills. Eyes: No discharge. ENT: No sore throat. Cardiovascular: No chest pain, no palpitations. Respiratory: No cough, no shortness of breath. Gastrointestinal: No abdominal pain, no vomiting. Genitourinary: No hematuria. Musculoskeletal: No back pain. Skin: No rashes. Neurological: No headache. PMHx: Right-sided arm osteomyelitis currently being treated with IV antibiotics , followed by Dr. Kaba and [facility] Hx: Housed PHYSICAL General Appearance: Alert, no distress Eyes: Pupils equal and round no pallor or injection ENT, Mouth: Mucous membranes moist Respiratory: Breathing comfortably Neurological: A&O, moves all extremities Skin: Warm and dry, no rashes Musculoskeletal: Neck is supple non tender Extremities: Right elbow with wound VAC in place, there is a small amount of clear yellowish fluid under the clear bandage Psychiatric: Patient is oriented X 3, there is no agitation Source: Patient Exam Limitations: No limitations - Personal History Current Tetanus/Diphtheria Vaccine: Yes Tetanus Vaccine Date: 02/02/2014 - Medical/Surgical History Hx Asthma: Yes Hx Chronic Respiratory Disease: No Hx Diabetes: No Hx Cardiac Disease: No Hx Renal Disease: No Hx Cirrhosis: No Hx Alcoholism: No Hx HIV/AIDS: No Hx Splenectomy or Spleen Trauma: No Other PMH: Hypothyroid, Lupus, depression, Asthma, ORIF R distal humerus - Social History Smoking Status: Never smoked Constitutional: Initial Vital Signs Temperature (C) 36.3 C 01/05/18 22:53 Heart Rate 84 01/05/18 22:53 Respiratory Rate 18 01/05/18 22:53 Blood Pressure 143/106 H 01/05/18 22:53 O2 Sat (%) 97 01/05/18 22:53 O2 Delivery Mode Room Air Allergies/Adverse Reactions: No Known Allergies Allergy (Unverified 01/05/18 22:55) Home Medications: Medication Instructions Recorded Fluticasone/Salmeter 100/50Mcg 1 puffs IH DAILY 02/02/14 [Advair 100/50 (*)] Levothyroxine [Synthroid 88 mcg 88 mcg PO DAILY@04 02/02/14 (*)] Liothyronine Sodium [Cytomel 5 mcg 15 mcg PO DAILY@05 02/02/14 (*)] Albuterol Hfa Anes Only [Proair 1 - 2 puffs IH Q4-6PRN PRN 10/09/17 Hfa Icu (*)] Liothyronine Sodium [Cytomel 5 mcg 10 mcg PO DAILY@1130 10/10/17 (*)] buPROPion SR [Wellbutrin 150mg SR 150 mg PO BID@07,13 10/10/17 (*)] Ascorbic Acid [Vitamin C 500 mg 500 mg PO DAILY 11/25/17 (*)] Cholecalciferol Vit D3 [Vitamin D3 1,000 units PO DAILY 11/25/17 (*)] Cyanocobalamin [Vitamin B12 (*)] 1,000 mcg PO DAILY 11/25/17 Herbals/Supplements -Info Only 1 ea PO DAILY 11/25/17 Hydroxychloroquine Sulfate 200 mg PO DAILY@18 11/25/17 [Plaquenil 200 mg (*)] [place]-3 Fatty Acids [Fish Oil 1000 1,000 mg PO DAILY 11/25/17 mg (*)] Acetamn/Diphenhydramine 500/25 1 - 2 each PO HS PRN tab 11/30/17 [Tylenol PM (*)] Hydrocodone/APAP 5/325 [[place] 1 - 2 tab PO Q3HRS PRN #30 tab 11/30/17 5/325 (*)] Hydrocodone/Acetaminophen 1 - 2 each PO Q6 #30 tablet 11/30/17 [Hydrocodon-Acetaminophen 5-325] cefTRIAXone [Rocephin 1 gm Vial] 1 gm IV DAILY #42 vial 11/30/17 Compounded Progesterone 0.5 tab 12/01/17 Nystatin 12/23/17 Medical Decision Making Differential Diagnosis: This is a 67-year-old female with right-sided elbow osteomyelitis and nonunion who is currently receiving treatment with a wound VAC and IV antibiotics who presents because her wound VAC is alarming likely because of poor seal because of drainage from the wound. This drainage appears to be serous and minimal. I consulted with Dr. Benjamin. She recommends that we remove the wound VAC and place a wet to dry dressing on the patient. She will be able to follow her tomorrow. We have completed this and will discharge the patient.. Departure - Departure Disposition: Home, Routine, Self-Care Clinical Impression: WOUND VAC complication Condition: Good Instructions: Acute Wounds (ED) Additional Instructions: Please follow-up with Dr. Benjamin tomorrow as planned. Keep the dressing in place until then. Referrals: Jayashree Lira MD [Primary Care Provider] - As per Instructions Kellie Benjamin MD [Medical Doctor] - As per Instructions
[2018-01-06 00:17] VITALS: BP 138/78; PULSE 78; TEMP 98.2; O2SAT 96
== END 2018-01-06 00:17 | disposition home or self-care (01) ==
DX: T81.4XXA Infection following a procedure, initial encounter (principal); J45.909 Unspecified asthma, uncomplicated; Y82.8 Other medical devices associated with adverse incidents

== ENCOUNTER → 2018-05-10 | Outpatient (CLI) | payer OTHER ==
[~2018-05-10] MED LIST changes: +GADOBUTROL 10 ML VIAL IVP ONE; -LIDOCAINE 1% 300 MG/30 ML SDV ONE
== END ==
LOC: FIMAGING 15:19
DX: M86.621 Other chronic osteomyelitis, right humerus (principal)
CPT/HCPCS: A9585